=== PATIENT | female | born 1960 | race Caucasian/White ===

== ENCOUNTER 2023-10-26 13:49 | Observation (INO) | payer OTHER ==
--- OUTSIDE RECORDS SUMMARY | 2023-10-26 13:52 | XMS REPORT | Continuity of Care Document ---
Author Name Unknown Address [address] [facility] [address] [id number] [facility] Address [address] [facility] [address] [place] [address] Care Team Providers Care Behavioral Health Associate Name Role Phone Ernesto Salazar Attending Clinician Unavailable Bhavin Rodriguez Attending Clinician Unavailable SOFÍA HAMEED Attending Clinician Unavailable Lab, Adc Fam Pob I Attending Clinician UnavailPaula Parker Attending Clinician PAULA SPAULDING Attending Clinician Unavailable Dorothy Jones PA-C Attending Clinician DOROTHY JONES Attending Clinician Unavailable Payers Payer Name Policy Type Policy Number Effective Date Expirati on Date Source [employer] CHOICE POS II [id number] 2018 00:00:00 Allergies, Adverse Reactions, Alerts Allergy Name Allergy Type Status Severity Reaction(s) Onset Date Inactive Date Treating Clinician Comments Source NO KNOWN ALLERGIE S Drug Class Active [facility] Social History Social Habit Start Date Stop Date Quantity Comments Source Sex Assigned At [facility] Exposure to SARS-CoV-2 (event) Yes [facility] Smoking Status Start Date Stop Date Source Unknown if ever smoked [facility] Encounters Start Date/Time End Date/Time Encounter Type Admission Type Attending Clinicians Care Facility Care Department Encounter ID Source 2023-09-15 13:57:00 Outpatient Ernesto Salazar [facility] [id number] [facility] 2023-07-17 15:01:00 Outpatient Bhavin Rodriguez [facility] [id number] [facility] 2021-01-22 15:50:00 2021-01-22 15:50:00 Outpatient SOFÍA HERRMANN [facility] [id number] [facility] 2021-01-01 15:50:00 2021-01-01 15:50:00 Outpatient Elena HAMEED SOFÍA [facility] [id number] [facility] 2020-11-13 11:01:06 2020-11-13 11:21:06 Laboratory Only Lab, [facility] Sara Santiagoammy [facility] ..[id number] [facility] 2020-11-13 11:00:00 2020-11-13 11:00:00 Outpatient Elena PAULA SPAULDING [facility] [id number] [facility] 2020-11-09 16:26:52 2020-11-09 16:46:52 Laboratory Only Lab, [facility] Sara Jones [facility] [id number] [facility] 2020-11-09 16:20:00 2020-11-09 16:20:00 Outpatient Elena [facility] [id number] [facility]
--- NOTE | 2023-10-26 15:00 | EDPHYS ---
Physician Documentation [facility] Name: Kimberly Mosquera Age: 62 yrs Sex: Female : 1960 Arrival Date: 10/26/2023 Time: 13:49 Bed 18 Private MD: ED Physician Javi Youssef HPI: 10/26 14:34 This 62 yrs old Female presents to ER via Wheelchair with complaints of hemal Abdominal Pain. 14:34 The patient presents with abdominal pain in the epigastric area, in the upper abdomen. hemal Historical: - Allergies: 14:11 No Known Allergies; ko1 - Immunization history:: Adult Immunizations unknown. - Social history:: Smoking status: Patient denies any tobacco usage or history of. ROS: 14:51 Constitutional: Negative for fever, chills, and weight loss, Eyes: Negative for injury, hemal pain, redness, and discharge, ENT: Negative for injury, pain, and discharge, Neck: Negative for injury, pain, and swelling, Cardiovascular: Negative for chest pain, palpitations, and edema, Respiratory: Negative for shortness of breath, cough, wheezing, and pleuritic chest pain, Back: Negative for injury and pain, : Negative for injury, bleeding, discharge, and swelling, MS/Extremity: Negative for injury and deformity, Skin: Negative for injury, rash, and discoloration, Neuro: Negative for headache, weakness, numbness, tingling, and seizure, Psych: Negative for depression, anxiety, suicide ideation, homicidal ideation, and hallucinations, Allergy/Immunology: Negative for hives, rash, and allergies, Endocrine: Negative for neck swelling, polydipsia, polyuria, polyphagia, and marked weight changes, Hematologic/Lymphatic: Negative for swollen nodes, abnormal bleeding, and unusual bruising, 14:51 Abdomen/GI: Positive for abdominal pain, nausea and vomiting, abdominal cramps, of the epigastric area, right upper quadrant and left upper quadrant, Exam: 14:51 Constitutional: This is a well developed, well nourished patient who is awake, alert, hemal and in no acute distress. Head/Face: Normocephalic, atraumatic. Eyes: Pupils equal round and reactive to light, extra-ocular motions intact. Lids and lashes normal. Conjunctiva and sclera are non-icteric and not injected. Cornea within normal limits. Periorbital areas with no swelling, redness, or edema. ENT: Nares patent. No nasal discharge, no septal abnormalities noted. Tympanic membranes are normal and external auditory canals are clear. Oropharynx with no redness, swelling, or masses, exudates, or evidence of obstruction, uvula midline. Mucous membranes moist. Neck: Trachea midline, no thyromegaly or masses palpated, and no cervical lymphadenopathy. Supple, full range of motion without nuchal rigidity, or vertebral point tenderness. No Meningismus. Chest/axilla: Normal chest wall appearance and motion. Nontender with no deformity. No lesions are appreciated. Cardiovascular: Regular rate and rhythm with a normal S1 and S2. No gallops, murmurs, or rubs. Normal PMI, no JVD. No pulse deficits. Respiratory: Lungs have equal breath sounds bilaterally, clear to auscultation and percussion. No rales, rhonchi or wheezes noted. No increased work of breathing, no retractions or nasal flaring. Back: No spinal tenderness. No costovertebral tenderness. Full range of motion. Female : Normal external genitalia. Skin: Warm, dry with normal turgor. Normal color with no rashes, no lesions, and no evidence of cellulitis. MS/ Extremity: Pulses equal, no cyanosis. Neurovascular intact. Full, normal range of motion. Neuro: Awake and alert, GCS 15, oriented to person, place, time, and situation. Cranial nerves II-XII grossly intact. Motor strength 5/5 in all extremities. Sensory grossly intact. Cerebellar exam normal. Normal gait. Psych: Awake, alert, with orientation to person, place and time. Behavior, mood, and affect are within normal limits. 14:51 ECG was reviewed by the Attending Physician. 14:51 Abdomen/GI: Inspection: abdomen appears normal, Bowel sounds: normal, Palpation: mild abdominal tenderness, moderate abdominal tenderness, in the epigastric area and left upper quadrant, Liver: no appreciated palpable abnormalities, Hernia: not appreciated, Vital Signs: 14:06 BP 174 / 94; Pulse 69; Resp 19; Temp 98; Pulse Ox 100% ; ko1 15:30 BP 193 / 90; Pulse 72; Resp 16; Pulse Ox 99% on R/A; db 16:15 BP 128 / 72; Pulse 70; Resp 18; Pulse Ox 95% on R/A; db 17:22 BP 140 / 64; Pulse 66; Resp 16; Pulse Ox 96% on R/A; db MDM: 14:15 Patient medically screened. [place] 14:53 Differential diagnosis: Nonspecific abd pain, cholecystitis, pancreatitis, hemal appendicitis, diverticulitis, viral gastroenteritis, gastroenteritis, Cholelithiasis, diverticulitis, gastritis, gastroesophageal reflux disease, non-specific abd pain, pancreatitis, Peptic Ulcer Disease, Perf. Duodenal Ulcer, Perf. Gastric Ulcer, Peritonitis, Pyelonephritis, Ureterolithiasis, urinary tract infection. Data reviewed: vital signs, nurses notes, lab test result(s), EKG, radiologic studies, CT scan, plain films, ultrasound. Consideration of Admission/Observation Patient was admitted/placed on observation. Escalation of care including admission/observation considered. I considered the following discharge prescriptions or medication management in the emergency department Medications were administered in the Emergency Department. See MAR. Independent interpretation of the following test(s) in the Emergency Department EKG: See my EKG interpretation above. Test considered but Not performed: MRI: NO MRCP. Care significantly affected by the following chronic conditions: ETOH DAILY/HEAVY. 10/26 13:59 Order name: CBC with Diff; Complete Time: 15:26 [place] 10/26 13:59 Order name: CMP; Complete Time: 15:39 [place] 10/26 13:59 Order name: Lipase; Complete Time: 15:39 [place] 10/26 13:59 Order name: Urinalysis w/ reflexes [place] 10/26 14:16 Order name: Troponin High Sensitivity; Complete Time: 16:36 [place] 10/26 14:16 Order name: EKG; Complete Time: 14:17 [place] 10/26 13:59 Order name: IV Saline Lock; Complete Time: 15:00 [place] 10/26 13:59 Order name: Labs collected and sent; Complete Time: 15:00 [place] 10/26 14:16 Order name: EKG - Nurse/Tech; Complete Time: 15:17 [place] EC:51 Rate is 70 beats/min. Rhythm is regular. QRS [place] is Normal. VA interval is normal. QRS hemal interval is normal. QT interval is normal. No Q waves. T waves are Normal. No ST changes noted. Clinical impression: Normal ECG and No evidence of ischemia. Interpreted by me. Reviewed by me. Administered Medications: 14:16 CANCELLED (Duplicate Order): ondansetron 4 mg IVP once; over 2 minutes hemal 15:49 CANCELLED (Duplicate Order): morphineor iv 4 mg IVP once over 4 mins hemal 16:00 Drug: HYDROmorphone IVP 1 mg IVP once Route: IVP; Site: right antecubital; db 17:20 Follow up: Response: No adverse reaction db 16:00 Drug: Pantoprazole IVP 40 mg IVP once Route: IVP; Site: right antecubital; db 17:20 Follow up: Response: No adverse reaction db 16:00 Drug: NS 0.9% IV 1000 ml IV at 1 bolus Per protocol; 1000 mL bolus Route: IV; Rate: 1 db bolus; Site: right antecubital; 17:20 Follow up: IV Status: Infusion continued upon admission db 16:00 Drug: Ondansetron IVP 8 mg IVP once; over 2 minutes Route: IVP; Site: right antecubital;db 17:09 Follow up: Response: No adverse reaction db 16:08 Not Given (Duplicate Order): ondansetron 4 mg IVP once; over 2 minutes db 16:40 Drug: NS 0.9% IV 1000 ml IV at 1 bolus Per protocol; 1000 mL bolus Route: IV; Rate: 1 db bolus; Site: right antecubital; 17:21 Follow up: IV Status: Infusion continued upon admission db 17:04 Drug: NS 0.9% with KCl IV 20 mEq/L 1000 ml IV at 125 ml/hr continuous Route: IV; Rate: db 125 ml/hr; Site: right antecubital; 17:20 Follow up: Response: No adverse reaction; IV Status: Infusion continued upon admission db Disposition Summary: 10/26/23 14:59 Hospitalization Ordered Notes: Hospitalization Status: Observation hemal Provider: Glenn Rodrigues cha Location: Telemetry/MedSurg (observation) hemal Condition: Stable hemal Problem: new hemal Symptoms: have improved hemal Bed/Room Type: Standard hemal Room Assignment: 223(10/26/23 16:15) bd Diagnosis - Alcohol abuse, uncomplicated hemal - Epigastric abdominal tenderness - FAILED OUTPATIENT TREATMENT hemal - Vomiting - INTRACTABLE hemal - Hypokalemia hemal Forms: - Medication Reconciliation Form hemal - SBAR form hemal - Leadership Thank You Letter hemal Signatures: Dispatcher [employer] EDMS Estefanía Moss Corey, MD MD cha Attema, Lee, CHAIN MENDER-C CHAIN MENDER-Cla1 Celeste Dunn, RN RN ko1 Kelsey Lewis, RN RN db Corrections: (The following items were deleted from the chart) 14:14 14:00 Abdomen Pelvis W Con+CT.RAD.BRZ ordered. EDMS EDMS 14:16 13:59 Ondansetron IVP 4 mg IVP once; over 2 minutes ordered. hemal hemal 15:49 13:59 morphine IVP or IV 4 mg IVP once over 4 mins ordered. hemal hemal 16:15 14:59 hemal bd
--- NOTE | 2023-10-26 15:00 | ER ---
Nurse's Notes [facility] Name: Kimberly Mosquera Age: 62 yrs Sex: Female : 1960 Arrival Date: 10/26/2023 Time: 13:49 Bed 18 Private MD: Diagnosis: Alcohol abuse, uncomplicated;Epigastric abdominal tenderness-FAILED OUTPATIENT TREATMENT;Vomiting-INTRACTABLE;Hypokalemia Presentation: 10/26 14:06 Chief complaint: Patient states: abdominal pain and vomiting, was just here a couple of ko1 hours ago. Coronavirus screen: At this time, the client does not indicate any symptoms associated with coronavirus-19. Ebola Screen: No symptoms or risks identified at this time. Initial Sepsis Screen: Does the patient meet any 2 criteria? No. Patient's initial sepsis screen is negative. Does the patient have a suspected source of infection? No. Patient's initial sepsis screen is negative. Risk Assessment: Do you want to hurt yourself or someone else? Patient reports no desire to harm self or others. Onset of symptoms was October 26, 2023. 14:06 Method Of Arrival: Wheelchair ko1 14:06 Acuity: ARTUR 2 ko1 Triage Assessment: 14:11 General: Appears distressed, ill, Behavior is cooperative, appropriate for age. Pain: ko1 Complains of pain in abdomen. GI: Pt is actively vomiting bile, clear fluid. Historical: - Allergies: 14:11 No Known Allergies; ko1 - Immunization history:: Adult Immunizations unknown. - Social history:: Smoking status: Patient denies any tobacco usage or history of. Screenin:35 [facility] ED Fall Risk Assessment (Adult) History of falling in the last 3 months, db including since admission No falls in past 3 months (0 pts) Confusion or Disorientation No (0 pts) Intoxicated or Sedated No (0 pts) Impaired Gait No (0 pts) Mobility Assist Device Used No (0 pt) Altered Elimination No (0 pt) Score/Fall Risk Level 0 - 2 = Low Risk Oriented to surroundings, Maintained a safe environment. Abuse screen: Denies threats or abuse. Denies injuries from another. Nutritional screening: No deficits noted. Tuberculosis screening: No symptoms or risk factors identified. Assessment: 15:45 Reassessment: Patient appears in no apparent distress at this time. Patient and/or db family updated on plan of care and expected duration. Pain level reassessed. Patient is alert, oriented x 3, equal unlabored respirations, skin warm/dry/pink. General: Appears in no apparent distress. comfortable, Behavior is calm, cooperative. 16:33 Reassessment: Patient appears in no apparent distress at this time. Patient and/or db family updated on plan of care and expected duration. Pain level reassessed. Patient is alert, oriented x 3, equal unlabored respirations, skin warm/dry/pink. Patient states feeling better. Patient states symptoms have improved. General: Appears in no apparent distress. comfortable, Behavior is calm, cooperative. Neuro: Level of Consciousness is awake, alert, obeys commands, Oriented to person, place, time, situation. Respiratory: Airway is patent Respiratory effort is even, unlabored, Respiratory pattern is regular, symmetrical. 16:37 Reassessment: REPORT GIVEN TO ROXANNE. graves 17:22 Reassessment: Patient appears in no apparent distress at this time. Patient and/or db family updated on plan of care and expected duration. Pain level reassessed. Patient is alert, oriented x 3, equal unlabored respirations, skin warm/dry/pink. Vital Signs: 14:06 BP 174 / 94; Pulse 69; Resp 19; Temp 98; Pulse Ox 100% ; ko1 15:30 BP 193 / 90; Pulse 72; Resp 16; Pulse Ox 99% on R/A; db 16:15 BP 128 / 72; Pulse 70; Resp 18; Pulse Ox 95% on R/A; db 17:22 BP 140 / 64; Pulse 66; Resp 16; Pulse Ox 96% on R/A; db ED Course: 13:53 Patient arrived in ED. im 13:56 Javi Youssef MD is Attending Physician. hemal 14:11 Triage completed. ko1 14:11 Arm band placed on right wrist. Patient placed in an exam room, on a stretcher, on ko1 technical agronomist, on pulse oximetry, Patient notified of wait time. 14:54 Glenn Rodrigues is Hospitalizing Provider. hemal 15:00 CBC with Diff Sent. cm10 15:00 CMP Sent. cm10 15:00 Lipase Sent. cm10 15:00 Troponin High Sensitivity Sent. cm10 15:00 Initial lab(s) drawn, by il, sent to lab. Inserted saline lock: 20 gauge in right cm10 antecubital area, using aseptic technique. Blood collected. 15:16 EKG done, by ED staff. aw1 15:27 Kelsey Lewis, RN is Primary Nurse. db 16:39 Patient has correct armband on for positive identification. Bed in low position. Call db light in reach. Side rails up X 1. Provided Education on: ADMISSION. Client placed on continuous cardiac and pulse oximetry monitoring. NIBP monitoring applied. Warm blanket given. 16:39 No provider procedures requiring assistance completed. Patient admitted, IV remains in db place. Administered Medications: 14:16 CANCELLED (Duplicate Order): ondansetron 4 mg IVP once; over 2 minutes hemal 15:49 CANCELLED (Duplicate Order): morphineor iv 4 mg IVP once over 4 mins hemal 16:00 Drug: HYDROmorphone IVP 1 mg IVP once Route: IVP; Site: right antecubital; db 17:20 Follow up: Response: No adverse reaction db 16:00 Drug: Pantoprazole IVP 40 mg IVP once Route: IVP; Site: right antecubital; db 17:20 Follow up: Response: No adverse reaction db 16:00 Drug: NS 0.9% IV 1000 ml IV at 1 bolus Per protocol; 1000 mL bolus Route: IV; Rate: 1 db bolus; Site: right antecubital; 17:20 Follow up: IV Status: Infusion continued upon admission db 16:00 Drug: Ondansetron IVP 8 mg IVP once; over 2 minutes Route: IVP; Site: right antecubital;db 17:09 Follow up: Response: No adverse reaction db 16:08 Not Given (Duplicate Order): ondansetron 4 mg IVP once; over 2 minutes db 16:40 Drug: NS 0.9% IV 1000 ml IV at 1 bolus Per protocol; 1000 mL bolus Route: IV; Rate: 1 db bolus; Site: right antecubital; 17:21 Follow up: IV Status: Infusion continued upon admission db 17:04 Drug: NS 0.9% with KCl IV 20 mEq/L 1000 ml IV at 125 ml/hr continuous Route: IV; Rate: db 125 ml/hr; Site: right antecubital; 17:20 Follow up: Response: No adverse reaction; IV Status: Infusion continued upon admission db Medication: 16:39 VIS not applicable for this client. db Outcome: 14:59 Decision to Hospitalize by Provider. hemal 17:21 Admitted to Tele accompanied by tech, on monitor, db 17:21 Instructed on the need for admit, 17:24 Patient left the ED. db Signatures: Javi Youssef MD MD cha Oliver, Kathy RN RN ko1 Kelsey Lewis RN RN db Betina Jean Baptiste Clarissa RN RN cm10 Naomi Gambino aw1 Corrections: (The following items were deleted from the chart) 14:11 14:06 Acuity: ARTUR 3 ko1 ko1
[2023-10-26 15:07] LABS: Absolute Lymphocytes (CBC) 0.9 K/uL (0.7-4.9); Hematocrit 38.4 % (36.0-45.0); Lymphocytes % 8.8 % (15.3-44.8); MCV 94.5 fL (80-100); MPV 7.1 fL (7.6-11.3); Platelets 381 thou/uL (152-406); RBC Red Blood Cell Count 4.07 M/uL (3.86-4.86)
[2023-10-26 15:24] LABS: Albumin 3.7 g/dL (3.4-5.0); Bilirubin Total 0.3 mg/dL (0.2-1.0); Potassium 3.3 mEq/L (3.5-5.1); Protein, Total 7.5 g/dL (6.4-8.2)
[2023-10-26] MEDS ORDERED: ONDANSETRON 4 MG/2 ML VIAL ONE ×2 (15:47→15:52)
[2023-10-26] MEDS ORDERED: PANTOPRAZOLE 40 MG INJ ONE (15:47)
[2023-10-26] MEDS ORDERED: MORPHINE 4 MG/ML SYR ONE (15:47)
[2023-10-26] MEDS ORDERED: NA CHLORIDE 0.9% 2,000 ML ONE (15:48)
[2023-10-26] MEDS ORDERED: HYDROMORPHONE HCL 1 MG/ML INJ ONE (15:52)
--- NOTE | 2023-10-26 16:14 | P.HP ---
Certification for Inpatient Patient admitted to: Observation With expected LOS: <2 Midnights Patient will require the following post-hospital care: None Practitioner: I am a practitioner with admitting privileges, knowledge of patient current condition, hospital course, and medical plan of care. Services: Services provided to patient in accordance with Admission requirements found in Title 42 Section 412.3 of the Code of Federal Regulations Patient History Date of Service: 10/26/23 Reason for admission: Intractable vomiting/abdominal pain History of Present Illness: 62-year-old female with history of hypertension, hyperlipidemia, depression presents to the emergency department chief complaint of abdominal pain, nausea/vomiting. She reports that last night she ate crackers with butter and bread on top for the first time in a very long time as she does not usually consume butter, also admits to drinking vodka daily 2-3 beverages per night. W hen she went to bed she is feeling fine, when she woke up this morning at 5 AM she was having significant abdominal pain and vomiting and came to the ER for evaluation. Patient was seen first in the emergency room in the morning on 10/26, she had labs which were remarkable only for mild leukocytosis abdominal ultrasound was negative for acute findings chest x-ray unremarkable CT abdomen pelvis was also performed which was negative for acute findings that explain her pain. She was subsequently discharged home. After arriving home patient reports she had return of her pain and vomiting requiring her to come back to the hospital, upon arrival to the hospital patient was in significant pain, active vomiting. Labs were repeated sodium went from 1 34-132 potassium from 4.1 down to 3.3 and ch loride from 197 lipase remained within normal limits platelets count decreased from 12.6-9.0 UA from first visit not concerning for urinary tract infection. ED provider wishes to admit under observation for tractable vomiting/abdominal pain. - Past Medical/Surgical History -: Hyperlipidemia -: Hypertension -: Depression -: D&C Psychosocial/ Personal History: Self-employed - Family History Mother -: Heart disease, Cancer Father -: Cancer - Social History Smoking Status: Never smoker Alcohol use: Yes CD- Drugs: No Caffeine use: Yes Place of Residence: Home Review of Systems 10-point ROS is otherwise unremarkable Gastrointestinal: Nausea, Vomiting, Abdominal Pain Physical Examination - Physical Exam General: Alert, In no apparent distress, Oriented x3 HEENT: Atraumatic, PERRLA, Mucous membr. moist/pink Neck: Supple, 2+ carotid pulse no bruit, No LAD Respiratory: Clear to auscultation bilaterally, Normal air movement Cardiovascular: Regular rate/rhythm, Normal S1 S2 Gastrointestinal: Normal bowel sounds, Tenderness (Mild generalized abdominal tenderness) Musculoskeletal: No tenderness Integumentary: No rashes Neurological: Normal speech, Normal strength at 5/5 x4 extr, Normal tone, Normal affect - Studies Laboratory Data (last 24 hrs) 10/26/23 10/26/23 14:55 14:55 WBC 9.90 Hgb 13.2 Hct 38.4 Plt Count 381 Sodium 132 L Potassium 3.3 L D BUN 8 Creatinine 0.71 Glucose 162 H Total Bilirubin 0.3 AST 15 ALT 25 Alkaline Phosphatase 53 Lipase 63 Assessment and Plan - Plan Assessment: Intractable abdominal pain/vomiting No CT or ultrasound findings to explain symptoms Lipase within normal limits at this time N.p.o. aside from ice chips, small sips of water Repeat troponin, lipase levels Will trial PPI Does admit to daily drinking, possible gastritis Also consumed a fair bit of butter yesterday which she does not typically eat KUB in the morning, advance diet as tolerated Last colonoscopy 8 years ago, never had EGD. Denies melena, hematochezia Hypertension Hyperlipidemia Depression Hold oral medications for now, restart appropriate DVT PPX: Lovenox Code status: Full Discharge Plan: Home Plan to discharge in: 24 Hours - Advance Directives Does patient have a Living Will: No Does patient have a Durable POA for Healthcare: No - Code Status/Comfort Care Code Status Assessed: Yes (Full code) Critical Care: No Time Spent Managing Pts Care (In Minutes): 55
[2023-10-26] MEDS ORDERED: NS KCL 20MEQ 1,000 ML IV ONE (16:58)
[2023-10-26] MEDS ORDERED: HYDRALAZINE HCL 20 MG/ML VIAL IV PRN (17:39)
[2023-10-26] MEDS ORDERED: SODIUM CHLORIDE 0.9% 10ML INJ IV PRN (17:39)
[2023-10-26] MEDS ORDERED: PROMETHAZINE 25 MG TABLET PO PRN (17:39)
[2023-10-26] MEDS ORDERED: ONDANSETRON 4 MG/2 ML VIAL IV PRN (17:39)
[2023-10-26 17:53] VITALS: BMI 25.7
[2023-10-26 18:23] VITALS: O2SAT 97
[2023-10-26] MEDS: NA CHLORIDE 0.9% 1,000 ML IV SCH (19:07)
[2023-10-26] MEDS: MORPHINE 2 MG/ML SYR IV PRN (21:08)
[2023-10-26] MEDS: PANTOPRAZOLE 40 MG INJ IVP SCH (21:09)
[2023-10-27 02:33] LABS: Absolute Lymphocytes (CBC) 2.6 K/uL (0.7-4.9); Hematocrit 30.7 % (36.0-45.0); Lymphocytes % 32.7 % (15.3-44.8); MCV 95.1 fL (80-100); MPV 7.3 fL (7.6-11.3); Platelets 307 thou/uL (152-406); RBC Red Blood Cell Count 3.23 M/uL (3.86-4.86)
[2023-10-27 03:13] LABS: Albumin 2.8 g/dL (3.4-5.0); Bilirubin Total 0.3 mg/dL (0.2-1.0); Magnesium 1.9 mg/dL (1.6-2.4); Potassium 3.4 mEq/L (3.5-5.1); Protein, Total 5.6 g/dL (6.4-8.2); Thyroid Stimulating Hormone 0.793 uIU/mL (0.358-3.740); Troponin High Sensitivity 5.9 pg/mL (<58.9)
[2023-10-27] MEDS: NA CHLORIDE 0.9% 1,000 ML IV SCH ×3 (03:39→13:39)
[2023-10-27] MEDS: KCL 20 MEQ/100 mL IVPB 20 MEQ/100 ML BAG IV SCH ×2 (05:42→09:35)
--- NOTE | 2023-10-27 07:24 | RAD REPORT ---
EXAM DESCRIPTION: RAD - Abdomen 1 View (KUB) - 10/27/2023 6:36 am CLINICAL HISTORY: abd pain, vomiting COMPARISON: Abdomen Pelvis W Contrast dated 10/26/2023 FINDINGS: Nonobstructive bowel gas pattern. No acute osseous abnormality.Visualized lungs are unrema rkable.No abnormal calcifications. Mild formed stool burden. IMPRESSION: Nonobstructive bowel gas pattern.
[2023-10-27] MEDS ORDERED: ATORVASTATIN 20 MG TAB PO SCH (09:00)
[2023-10-27] MEDS ORDERED: ESCITALOPRAM 20 MG TAB PO SCH (09:00)
[2023-10-27] MEDS ORDERED: FLUTICASONE 50MCG NASAL SPRAY NAS SCH (09:00)
[2023-10-27] MEDS ORDERED: ENOXAPARIN 40 MG/0.4 ML SQ SCH (09:00)
[2023-10-27] MEDS ORDERED: lisinopriL 20 MG TAB PO SCH (09:00)
[2023-10-27] MEDS: PANTOPRAZOLE 40 MG INJ IVP SCH (09:35)
[2023-10-27] MEDS: MORPHINE 2 MG/ML SYR IV PRN (10:42)
--- NOTE | 2023-10-27 11:49 | EKG ---
Test Date: 2023-10-26 Test Time: 15:13:55 Clearing Inspector: CHETNA MEASUREMENT RESULTS: Intervals: Rate: 69 RI: 142 QRSD: 108 QT: 426 QTc: 456 [place]: P: 66 RI: 142 QRS: 70 T: 40 INTERPRETIVE STATEMENTS: Normal sinus rhythm Normal ECG Compared to ECG 10/26/2023 07:42:33 No significant changes Electronically Signed On 10-27-23 11:46:25 PIECE HAND by Sandeep Leos
--- NOTE | 2023-10-27 15:35 | P.DS ---
Admission Date: 10/26/23 Discharge Date: 10/27/23 Reason for Admission: Intractable vomiting/abdominal pain Brief History of Present Illness: 62-year-old female with history of hypertension, hyperlipidemia, depression presents to the emergency department chief complaint of abdominal pain, nausea/vomiting. She reports that last night she ate crackers with butter and bread on top for the first time in a very long time as she does not usually consume butter, also admits to drinking vodka daily 2-3 beverages per night. When she went to bed she is feeling fine, when she woke up this morning at 5 AM she was having significant abdominal pain and vomiting and came to the ER for evaluation. Patient was seen first in the emergency room in the morning on 10/26, she had labs which were remarkable only for mild leukocytosis abdominal ultrasound was negative for acute findings chest x-ray unremarkable CT abdomen pelvis was also performed which was negative for acute findings that explain her pain. She was subsequently discharged home. After arriving home patient reports she had return of her pain and vomiting requiring her to come back to the hospital, upon arrival to the hospital patient was in significant pain, active vomiting. Labs were repeated sodium went from 1 34-132 potassium from 4.1 down to 3.3 and chloride from 197 lipase remained within normal limits platelets count decreased from 12.6-9.0 UA from first visit not concerning for urinary tract infection. ED provider wishes to admit under observation for tractable vomiting/abdominal pain. Hospital Course: Problem list Intractable abdominal pain/vomiting Hypertension Hyperlipidemia Depression Patient was admitted to the hospital for intractable vomiting, abdominal pain. In the emergency department she had a CT of her abdomen pelvis which was negative for acute findings, ultrasound of gallbladder also negative, lab work was unremarkable. Overnight her symptoms improved, in the morning she tolerated a clear liquid diet and subsequently for lunch she tolerated a regular diet. KUB obtained this morning with nonobstructive bowel gas pattern, no free air. At this time patient is stable for discharge to follow-up with her primary care doctor. Please take medications as prescribed by ED physician yesterday Follow-up with primary care doctor in 1 to 2 weeks Discontinue daily aspirin, abstain from alcohol Vital Signs/Physical Exam: Temp Pulse Resp BP Pulse Ox 98.2 F 61 16 150/72 H 96 10/27/23 12:00 10/27/23 12:00 10/27/23 12:00 10/27/23 12:00 10/27/23 12:00 General: Alert, In no apparent distress, Oriented x3 HEENT: Atraumatic, PERRLA Neck: Supple, JVD not distended Respiratory: Normal air movement Cardiovascular: Regular rate/rhythm, Normal S1 S2 Gastrointestinal: Normal bowel sounds, No tenderness Musculoskeletal: No tenderness Integumentary: No rashes Neurological: Normal speech, Normal tone, Normal affect Laboratory Data at Discharge: WBC 8.00 thou/uL (4.3-10.9) 10/27/23 01:55 Hgb 10.6 g/dL (12.0-15.0) L D 10/27/23 01:55 Hct 30.7 % (36.0-45.0) L 10/27/23 01:55 Plt Count 307 thou/uL (152-406) 10/27/23 01:55 Sodium 134 mEq/L (136-145) L 10/27/23 01:55 Potassium 3.4 mEq/L (3.5-5.1) L 10/27/23 01:55 BUN 6 mg/dL (7-18) L 10/27/23 01:55 Creatinine 0.44 mg/dL (0.55-1.02) L 10/27/23 01:55 Glucose 91 mg/dL (74-106) 10/27/23 01:55 Magnesium 1.9 mg/dL (1.6-2.4) 10/27/23 01:55 Total Bilirubin 0.3 mg/dL (0.2-1.0) 10/27/23 01:55 AST 14 U/L (15-37) L 10/27/23 01:55 ALT 19 U/L (13-56) 10/27/23 01:55 Alkaline Phosphatase 39 U/L (45-117) L D 10/27/23 01:55 Lipase 24 U/L (13-75) 10/27/23 01:55 Home Medications: Bisoprolol/Hydrochlorothiazide [Bisoprolol-Hctz 5-6.25 mg Tab] 5 - 6.25 mg PO DAILY 10/26/23 Escitalopram [Lexapro] 10 mg PO DAILY 10/26/23 Fluticasone [Flonase 50MCG Nasal [place]*] 1 sprays DAILY 10/26/23 Simvastatin 40 mg PO DAILY 10/26/23 lisinopriL [Lisinopril] 20 mg PO BID 10/26/23 Physician Discharge Instructions: Patient was admitted to the hospital for intractable vomiting, abdominal pain. In the emergency department she had a CT of her abdomen pelvis which was negative for acute findings, ultrasound of gallbladder also negative, lab work was unremarkable. Overnight her symptoms improved, in the morning she tolerated a clear liquid diet and subsequently for lunch she tolerated a regular diet. KUB obtained this morning with nonobstructive bowel gas pattern, no free air. At this time patient is stable for discharge to follow-up with her primary care doctor. Please take medications as prescribed by ED physician yesterday Follow-up with primary care doctor in 1 to 2 weeks Discontinue daily aspirin, abstain from alcohol Diet: [place] Activity: Ad barber Followup: NONE,NONE [Primary Care Provider] - Time spent managing pt's care (in minutes): 30
[2023-10-27 16:45] VITALS: BP 129/66; TEMP 98.4
== END 2023-10-27 16:45 | disposition home or self-care (01) ==
LOC: ER 13:49 → 2ND 16:59
PROVIDERS: ADMIT Internal Medicine; ATTEND Hospitalist
DX: R10.9 Unspecified abdominal pain (principal); R11.2 Nausea with vomiting, unspecified; D72.829 Elevated white blood cell count, unspecified; I10 Essential (primary) hypertension; E78.5 Hyperlipidemia, unspecified; F32.A Depression, unspecified; F10.90 Alcohol use, unspecified, uncomplicated
CPT/HCPCS: 96361; 93005; 85025 ×2; 36415; 83735; 84443; 84484 ×3; 84439; 83690 ×2; 80053 ×2; 74018; 96375; 96374; 99285; J3480 ×3; J0360; C9113 ×3; J1650; J2270 ×2; J1170; J2405 ×2; J7030 ×4; G0378 ×3

== ENCOUNTER 2025-08-14 18:43 | Emergency (ER) | payer OTHER ==
--- OUTSIDE RECORDS SUMMARY | 2025-08-14 18:48 | XMS REPORT | Continuity of Care Document ---
Author Name Unknown Address [address] [facility] [phone] Organization [facility] Address [address] [facility] 1 [phone] Care Team Providers Care Ophthalmic Assistant Name Role Phone Ernesto Salazar Attending Clinician Unavailable Bhavin Rodriguez Attending Clinician Unavailable SOFÍA HAMEED Attending Clinician Unavailable Lab, Adc Fam Pob I Attending Clinician UnavailKacey Parker Attending Clinician KACEY SPAULDING Attending Clinician Unavailable Dorothy Jones PA-C Attending Clinician [phone] DOROTHY JONES Attending Clinician Unavailable Payers Payer Name Policy Type Policy Number Effective Date Expirati on Date Source AETNA 53 [id number] 2002 00:00:00 [facility] AETNA 53 [id number] [facility] AETNA CHOICE POS II [id number] 2018 00:00:00 Problems Condition Name Condition Details Condition Category Status Onset Date Resolution Date Last Treatment Date Treating Clinician Comments Source Uterine leiomyoma Uterine Leiomyoma Problem Active 11-18 00:00: 00 [facility] Hemangioma of liver Hemangioma of Liver Problem Active 11-16 00:00: 00 [facility] Cyst of left ovary Cyst of Left Ovary Problem Active 11-16 00:00: 00 [facility] Urgent desire to urinate Urgent Desire to Urinate Problem Active 2023-11 00:00: 00 [facility] Mass of uterus Mass of Uterus Problem Active 2023-11 00:00: 00 [facility] Atrophic vaginitis Atrophic Vaginitis Problem Active 2023-11 00:00: 00 [facility] Asymptomat ic microscopi c hematuria Asymptomat ic Microscopi c Hematuria Problem Active 2023-11 00:00: 00 [facility] Hyperlipid emia Hyperlipid emia Problem Active 2023-11 00:00: 00 [facility] Anxiety Anxiety Problem Active 2023-11 00:00: 00 [facility] Essential hypertensi on Essential Hypertensi on Problem Active 2023-11 00:00: 00 [facility] Irritable bowel syndrome with diarrhea Irritable Bowel Syndrome with Diarrhea Problem Active 2023-11 00:00: 00 [facility] Microscopi c hematuria Microscopi c Hematuria Problem Active 2023-11 00:00: 00 [facility] Pain in pelvis Pain in Pelvis Problem Active 2023-11 00:00: 00 [facility] [id number] Encounter for screening mammogram for malignant neoplasm of breast Problem [facility] Mixed hyperlipid emia Hyperlipem ia, mixed Problem [facility] [id number] Other abnormal and inconclusi ve findings on diagnostic imaging of breast Problem [facility] [id number] Generalize d anxiety disorder Problem [facility] [id number] Pain in right hip Problem [facility] [id number] Pain in left hip Problem [facility] [id number] Gastroesop hageal reflux disease without esophagiti s Problem [facility] [id number] Leukocytos is, unspecifie d Problem [facility] [id number] Routine gynecologi radha examinatio n Problem [facility] Allergies, Adverse Reactions, Alerts Allergy Name Allergy Type Status Severity Reaction(s) Onset Date Inactive Date Treating Clinician Comments Source codeine codeine Active Unknown [facility] NO KNOWN ALLERGIE S Drug Class Active [facility] Social History Social Habit Start Date Stop Date Quantity Comments Source Exposure to SARS-CoV-2 (event) Yes [facility] History of Tobacco Use [facility] Sex Assigned At [facility] Smoking Status Start Date Stop Date Source Never Smoker [facility] Unknown if ever smoked [facility] Former Smoker 2025-06-19 00:00:00 2025-06-19 00:00:00 [facility] Medications Ordered Medication Name Filled Medication Name Start Date Stop Date Current Medication? Ordering Clinician Indication Dosage Frequency Signature (SIG) Comments Components Source ketorolac 30 mg/mL (1 mL) injection solution Inject 1 mL every 6 hours by intramuscul ar route. ketorolac 30 mg/mL (1 mL) injection solution Inject 1 mL every 6 hours by intramuscul ar route. 11-18 08:55: 42 No 1mL Q6H ketorolac 30 mg/mL (1 mL) injection solution Inject 1 mL every 6 hours by intramuscu lar route. [facility] Multi Vitamin Multi Vitamin No Multi Vitamin Escitalopra m Oxalate 10 MG Escitalopra m Oxalate 10 MG No 1{table t} QD Escitalopr am Oxalate 10 MG Lisinopril 20 MG Lisinopril 20 MG No 1{table t} QD Lisinopril 20 MG Simvastatin 40 MG Simvastatin 40 MG No 1{table t_in_th e_eveni ng} QD Simvastati n 40 MG Omeprazole 20 MG Omeprazole 20 MG No QD Omeprazole 20 MG Fluticasone Propionate 50 MCG/ACT Fluticasone Propionate 50 MCG/ACT No 1{spray _in_[facility] h_nostr il} BID Fluticason e Propionate 50 MCG/ACT Bisoprolol- hydroCHLORO thiazide 5-6.25 MG Bisoprolol- hydroCHLORO thiazide 5-6.25 MG No 1{table t} QD Bisoprolol -hydroCHLO ROthiazide 5-6.25 MG bisoprolol 5 mg-hydrochl orothiazide 6.25 mg tablet Take 1 tablet every day by oral route. bisoprolol 5 mg-hydrochl orothiazide 6.25 mg tablet Take 1 tablet every day by oral route. No 1 Q1D bisoprolol 5 mg-hydroch lorothiazi de 6.25 mg tablet Take 1 tablet every day by oral route. [facility] cetirizine cetirizine No cetirizine [facility] escitalopra m 10 mg tablet Take 1 tablet every day by oral route. escitalopra m 10 mg tablet Take 1 tablet every day by oral route. No 1 Q1D escitalopr am 10 mg tablet Take 1 tablet every day by oral route. [facility] fluticasone prop 113 mcg/actuati on breath activated pwdr inhal,senso r Inhale 1 puff twice a day by inhalation route. fluticasone prop 113 mcg/actuati on breath activated pwdr inhal,senso r Inhale 1 puff twice a day by inhalation route. No 1puff(s ) BID fluticason e prop 113 mcg/actuat ion breath activated pwdr inhal,sens or Inhale 1 puff twice a day by inhalation route. [facility] lisinopril 20 mg tablet Take 1 tablet twice a day by oral route. lisinopril 20 mg tablet Take 1 tablet twice a day by oral route. No 1 BID lisinopril 20 mg tablet Take 1 tablet twice a day by oral route. [facility] multivitami n multivitami n No multivitam in [facility] simvastatin 40 mg tablet Take 1 tablet every day by oral route. simvastatin 40 mg tablet Take 1 tablet every day by oral route. No 1 Q1D simvastati n 40 mg tablet Take 1 tablet every day by oral route. [facility] acetaminoph en 300 mg-codeine 30 mg tablet 1 tablet prior to procedure and then every 8 hours after procedure as needed acetaminoph en 300 mg-codeine 30 mg tablet 1 tablet prior to procedure and then every 8 hours after procedure as needed No acetaminop hen 300 mg-codeine 30 mg tablet 1 tablet prior to procedure and then every 8 hours after procedure as needed [facility] Celebrex 200 mg capsule 1 capsule PO night before procedure Celebrex 200 mg capsule 1 capsule PO night before procedure No Celebrex 200 mg capsule 1 capsule PO night before procedure [facility] Valium 10 mg tablet 1 tablet PO night before procedure and 1 tablet PO 1 hour prior to procedure Valium 10 mg tablet 1 tablet PO night before procedure and 1 tablet PO 1 hour prior to procedure No Valium 10 mg tablet 1 tablet PO night before procedure and 1 tablet PO 1 hour prior to procedure [facility] estradiol 0.01% (0.1 mg/gram) vaginal cream Insert 0.5 g 3 times a week by vaginal route at bedtime. estradiol 0.01% (0.1 mg/gram) vaginal cream Insert 0.5 g 3 times a week by vaginal route at bedtime. No .5g Q56H estradiol 0.01% (0.1 mg/gram) vaginal cream Insert 0.5 g 3 times a week by vaginal route at bedtime. [facility] Immunizations Ordered Immunization Name Filled Immunization Name Date Status Comments Source Comirnaty COVID 19 Vaccine Comirnaty COVID 19 Vaccine Unknown Completed [facility] FLUZONE HIGH DOSE OVER 65 FLUZONE HIGH DOSE OVER 65 Unknown Completed [facility] Adult Tetanus Adult Tetanus Unknown Completed [facility] Vital Signs Vital Name Observation Time Observation Value Comments S ource height 2025-06-19 13:35:00 58 [in_i] Commo n [facility] weight 2025-06-19 13:35:00 140 [lb_av] Comm on [facility] bmi 2025-06-19 13:35:00 29.26 kg/m2 Comm on [facility] blood pressure systolic 2025-06-19 13:35:00 132 mm[Hg] [facility] blood pressure diastolic 2025-06-19 13:35:00 70 mm[Hg] [facility] height 2025-03-22 13:20:00 58 [in_i] Commo n [facility] weight 2025-03-22 13:20:00 140.6 [lb_av] Co [facility] temperature 2025-03-22 13:20:00 97.6 [degF] Com mon [facility] bmi 2025-03-22 13:20:00 29.38 kg/m2 Comm on [facility] oximetry 2025-03-22 13:20:00 99 % Commo n [facility] respiratory rate 2025-03-22 13:20:00 16 /min Common [facility] blood pressure systolic 2025-03-22 13:20:00 136 mm[Hg] [facility] blood pressure diastolic 2025-03-22 13:20:00 72 mm[Hg] [facility] height 2024-12-22 08:00:00 58 [in_i] Commo n [facility] weight 2024-12-22 08:00:00 137 [lb_av] Comm on [facility] bmi 2024-12-22 08:00:00 28.63 kg/m2 Comm on [facility] blood pressure systolic 2024-12-22 08:00:00 125 mm[Hg] [facility] blood pressure diastolic 2024-12-22 08:00:00 76 mm[Hg] [facility] Body Weight 2024-11-18 00:00:00 135.6 [lb_av] [facility] BP Diastolic 2024-11-18 00:00:00 84 mm[Hg] [facility] BMI (Body Mass Index) 2024-11-18 00:00:00 27.4 kg/m2 [facility] Height 2024-11-18 00:00:00 59 [in_i] [facility] BP Systolic 2024-11-18 00:00:00 150 mm[Hg] [facility] Height 2024-11-16 00:00:00 59 [in_i] [facility] Body Weight 2024-11-16 00:00:00 135.6 [lb_av] [facility] BP Diastolic 2024-11-16 00:00:00 73 mm[Hg] [facility] BMI (Body Mass Index) 2024-11-16 00:00:00 27.4 kg/m2 [facility] BP Systolic 2024-11-16 00:00:00 133 mm[Hg] [facility] Height 2024-11-01 00:00:00 59 [in_i] [facility] Body Weight 2024-11-01 00:00:00 135.6 [lb_av] [facility] BP Diastolic 2024-11-01 00:00:00 84 mm[Hg] [facility] BMI (Body Mass Index) 2024-11-01 00:00:00 27.4 kg/m2 [facility] BP Systolic 2024-11-01 00:00:00 130 mm[Hg] [facility] BP Systolic 2024-09-28 00:00:00 150 mm[Hg] [facility] BP Diastolic 2024-09-28 00:00:00 76 mm[Hg] [facility] Height 2024-09-28 00:00:00 59 [in_i] [facility] BMI (Body Mass Index) 2024-09-28 00:00:00 27.4 kg/m2 [facility] Body Weight 2024-09-28 00:00:00 135.6 [lb_av] [facility] height 2024-09-21 08:00:00 58 [in_i] Commo n [facility] weight 2024-09-21 08:00:00 137 [lb_av] Comm on [facility] temperature 2024-09-21 08:00:00 98.6 [degF] Com [facility] bmi 2024-09-21 08:00:00 28.63 kg/m2 Comm on [facility] blood pressure systolic 2024-09-21 08:00:00 128 mm[Hg] [facility] blood pressure diastolic 2024-09-21 08:00:00 77 mm[Hg] [facility] height 2024-05-19 16:20:00 58 [in_i] Commo n [facility] weight 2024-05-19 16:20:00 135 [lb_av] Comm on [facility] temperature 2024-05-19 16:20:00 97.5 [degF] Com [facility] bmi 2024-05-19 16:20:00 28.21 kg/m2 Comm on [facility] oximetry 2024-05-19 16:20:00 99 % Commo n [facility] blood pressure systolic 2024-05-19 16:20:00 132 mm[Hg] [facility] blood pressure diastolic 2024-05-19 16:20:00 66 mm[Hg] [facility] height 2024-05-19 16:20:00 58 [in_i] Commo n [facility] weight 2024-05-19 16:20:00 135 [lb_av] Comm on [facility] temperature 2024-05-19 16:20:00 97.5 [degF] Com mon [facility] bmi 2024-05-19 16:20:00 28.21 kg/m2 Comm on [facility] oximetry 2024-05-19 16:20:00 99 % Commo n [facility] blood pressure systolic 2024-05-19 16:20:00 132 mm[Hg] [facility] blood pressure diastolic 2024-05-19 16:20:00 66 mm[Hg] [facility] height 2024-01-13 11:20:00 58 [in_i] Commo n [facility] weight 2024-01-13 11:20:00 127 [lb_av] Comm on [facility] bmi 2024-01-13 11:20:00 26.54 kg/m2 Comm on [facility] blood pressure systolic 2024-01-13 11:20:00 135 mm[Hg] [facility] blood pressure diastolic 2024-01-13 11:20:00 76 mm[Hg] [facility] height 2024-01-13 11:20:00 58 [in_i] Commo n [facility] weight 2024-01-13 11:20:00 127 [lb_av] Comm on [facility] bmi 2024-01-13 11:20:00 26.54 kg/m2 Comm on [facility] blood pressure systolic 2024-01-13 11:20:00 135 mm[Hg] [facility] blood pressure diastolic 2024-01-13 11:20:00 76 mm[Hg] [facility] height 2023-09-15 13:30:00 58 [in_i] Commo n [facility] weight 2023-09-15 13:30:00 129.2 [lb_av] Co mmon [facility] temperature 2023-09-15 13:30:00 98.2 [degF] Com mon [facility] bmi 2023-09-15 13:30:00 27 kg/m2 Commo n [facility] oximetry 2023-09-15 13:30:00 98 % Commo n [facility] respiratory rate 2023-09-15 13:30:00 16 /min [facility] blood pressure systolic 2023-09-15 13:30:00 138 mm[Hg] [facility] blood pressure diastolic 2023-09-15 13:30:00 78 mm[Hg] [facility] height 2023-08-14 11:30:00 58 [in_i] Commo n [facility] weight 2023-08-14 11:30:00 120 [lb_av] Comm on [facility] temperature 2023-08-14 11:30:00 98.1 [degF] Com [facility] bmi 2023-08-14 11:30:00 25.08 kg/m2 Comm on [facility] height 2023-07-17 15:00:00 58 [in_i] Commo n [facility] weight 2023-07-17 15:00:00 125.6 [lb_av] Co [facility] temperature 2023-07-17 15:00:00 98.1 [degF] Com [facility] bmi 2023-07-17 15:00:00 26.25 kg/m2 Comm on [facility] oximetry 2023-07-17 15:00:00 99 % Commo n [facility] respiratory rate 2023-07-17 15:00:00 17 /min [facility] blood pressure systolic 2023-07-17 15:00:00 142 mm[Hg] [facility] blood pressure diastolic 2023-07-17 15:00:00 78 mm[Hg] [facility] Procedures Procedure Date / Time Performed Performing Clinicia n Source CT, urogram 2024-11-16 00:00:00 [facility], pelvis, w/wo contrast 2024-10-03 00:00:00 [facility] US TRANSVAGINAL 2024-09-30 [facility] + pelvis, w/wo contrast 2024-09-28 00:00:00 [facility] Dilation and Curettage 1988-11-09 00:00:00 [facility] Tonsillectomy 1969-11-09 00:00:00 [facility] Start Date/Time End Date/Time Encounter Type Admission Type Attending Clinicians Care Facility Care Department Encounter ID Source 2024-05-23 07:36:00 Outpatient SalazarErnesto butterfield [facility] ST[facility] [id number] [facility] 2024-05-03 16:34:00 Outpatient Ernesto Salazar [facility] STLMLC [id number] [facility] 2023-09-15 13:57:00 Outpatient Ernesto Salazar [facility] STLMLC [id number] [facility] 2023-07-17 15:01:00 Outpatient Bhavin Rodriguez [facility] STLC [id number] [facility] 2025-06-20 00:00:00 2025-06-20 00:00:00 (WEB) ST[facility] STLMLC [id number] [facility] 2025-06-19 00:00:00 2025-06-19 00:00:00 OFFICE VISIT ESTAB PT LEVEL 4 [facility] STLC [id number] [facility] 2025-06-07 00:00:00 2025-06-07 00:00:00 (LAB NB) Lab non-billab le STLMLC STLMLC [id number] [facility] 2025-03-31 00:00:00 2025-03-31 00:00:00 (TEL) STLMLC STLMLC [id number] [facility] 2025-03-27 00:00:00 2025-03-27 00:00:00 (WEB) STLMLC STLMLC [id number] [facility] 2025-03-22 00:00:00 2025-03-22 00:00:00 OFFICE VISIT ESTAB PT LEVEL 4 STLMLC STLMLC [id number] [facility] 2024-12-22 00:00:00 2024-12-22 00:00:00 OFFICE VISIT ESTAB PT LEVEL 4 STLMLC STLC [id number] [facility] 2024-12-08 00:00:00 2024-12-08 00:00:00 THEE Saravia: [address], [place] [address] , Ph. [facility] - GC_GCBZW_Camille Javier* [id number] [facility] 2024-11-29 00:00:00 2024-11-29 00:00:00 THEE Saravia: [address], [place] [address] , Ph. [facility] - GC_GCBZW_Camille Javier* [id number] [facility] 2024-11-18 00:00:00 2024-11-18 00:00:00 Shelia Arreola MD: [address], [place] [address] , Ph. [facility] - GC_GCBZW_Nd hansa Javier* [id number] [facility] 2024-11-17 00:00:00 2024-11-17 00:00:00 (WEB) STLC STLC [id number] [facility] 2024-11-17 00:00:00 2024-11-17 00:00:00 (WEB) STLMLC STLMLC [id number] [facility] 2024-11-16 00:00:00 2024-11-16 00:00:00 Shelia Arreola MD: [address], [place] [address] , Ph. [facility] - GC[facility]GCBZW_[facility]* [id number] [facility] 2024-11-01 00:00:00 2024-11-01 00:00:00 Shelia Arreola MD: [address], [place] [address] , Ph. [facility] - GC_GCBZW_Camille santo Yaya* [id number] [facility] 2024-10-20 00:00:00 2024-10-20 00:00:00 JEANCARLOS Hill: [address], [place] [address] , Ph. [facility] - GC_GCBZW_Camille Javier* [id number] [facility] 2024-10-03 00:00:00 2024-10-03 00:00:00 THEE Saravia: [address], [place] [address] , Ph. [facility] - GC_GCBZW_Nd hansa Yaya* [id number] [facility] 2024-09-30 00:00:00 2024-09-30 00:00:00 Shelia Arreola MD: [address], [place] [address] , Ph. [facility] - GC_GCBZW_Camille santo Gates* [id number] [facility] 2024-09-28 00:00:00 2024-09-28 00:00:00 Shelia Arreola MD: [address] [address], [place] [address] , Ph. [facility] - GC_GCBZW_Camille [facility]* [id number] [facility] 2024-09-21 00:00:00 2024-09-21 00:00:00 OFFICE VISIT ESTAB PT LEVEL 4 STLMLC STLMLC [id number] [facility] 2024-05-19 00:00:00 2024-05-19 00:00:00 PREV VISIT EST AGE 65 & OVER STLMLC STLMLC [id number] [facility] 2024-05-09 00:00:00 2024-05-09 00:00:00 (TEL) STLMLC STLMLC [id number] [facility] 2024-02-26 00:00:00 2024-02-26 00:00:00 (WEB) STLMLC STLMLC [id number] [facility] 2024-01-13 00:00:00 2024-01-13 00:00:00 OFFICE VISIT ESTAB PT LEVEL 4 STLMLC STLMLC [id number] [facility] 2023-12-02 00:00:00 2023-12-02 00:00:00 (TEL) STLMLC STLMLC [id number] [facility] 2023-11-30 00:00:00 2023-11-30 00:00:00 (TEL) STLMLC STLMLC [id number] [facility] 2023-10-22 00:00:00 2023-10-22 00:00:00 (TEL) STLMLC STLMLC [id number] [facility] 2023-09-15 00:00:00 2023-09-15 00:00:00 PREV VISIT EST AGE 40-64 STLMLC STLMLC [id number] [facility] 2023-08-14 00:00:00 2023-08-14 00:00:00 OFFICE VISIT ESTAB PT LEVEL 3 STLMLC STLMLC [id number] [facility] 2023-07-17 00:00:00 2023-07-17 00:00:00 OFFICE VISIT NEW PT LEVEL 4 STLMLC STLMLC [id number] [facility] 2023-07-17 00:00:00 2023-07-17 00:00:00 (TEL) STLMLC STLMLC [id number] [facility] 2021-01-22 15:50:00 2021-01-22 15:50:00 Outpatient SOFÍA HERRMANN [facility] [id number] [facility] 2021-01-01 15:50:00 2021-01-01 15:50:00 Outpatient SOFÍA HERRMANN [facility] [id number] [facility] 2020-11-13 11:01:06 2020-11-13 11:21:06 Laboratory Only Lab, John Spaulding [facility] [address] [id number] [facility] 2020-11-13 11:00:00 2020-11-13 11:00:00 Outpatient Elena [facility] [id number] [facility] 2020-11-09 16:26:52 2020-11-09 16:46:52 Laboratory Only Lab, Adc Aurelio Jones [facility] [address] [id number] [facility] 2020-11-09 16:20:00 2020-11-09 16:20:00 Outpatient DOROTHY RYAN [facility] [id number] [facility] Results Test Description Test Time Test Comments Results Result Co mments Source REFLEXIVE URINE [id number] 00:00:00REFLEXIVE URINE CULTURECOMPREHENSIVE METABOLIC [id number] 00:00:00* Test Item Value Reference Range Interpretation Comme nts HEMOGLOBIN A1c (test code = 4548-4) 5.5 % See_Comment [Automated messa ge] The system which generated this result transmitted reference range: 4.2-5.6 %. The reference range was not used to interpret this result as normal/abnormal. NUCLEATED RBCS (test code = 75511-8) 0.0 /100 WBC'S See_Comment [Automated message] The system which generated this result transmitted reference range: 0.0 /100 WBC'S. The reference range was not used to interpret this result as normal/abnormal. ABSOLUTE EOSINOPHILS (test code = 90836-5) 0.13 K/UL See_Comment [Automated message] The system which generated this result transmitted reference range: 0.00-0.50 K/UL. The reference range was not used to interpret this result as normal/abnormal. ABSOLUTE LYMPHOCYTES (test code = 96899-7) 3.24 K/UL See_Comment [Automated message] The system which generated this result transmitted reference range: 1.00-4.00 K/UL. The reference range was not used to interpret this result as normal/abnormal. ABSOLUTE MONOCYTES (test code = 24365-6) 0.92 K/UL See_Comment [Automated message] The system which generated this result transmitted reference range: 0.20-1.00 K/UL. The reference range was not used to interpret this result as normal/abnormal. ABSOLUTE NEUTROPHILS (test code = 78945-2) 7.82 K/UL See_Comment H [Automated message] The system which generated this result transmitted reference range: 1.50-7.50 K/UL. The reference range was not used to interpret this result as normal/abnormal. BASOPHILS (test code = 95518-1) 0.5 % EOSINOPHILS (test code = 30018-7) 1.1 % HEMATOCRIT (test code = 11672-9) 34.2 % See_Comment [Automated messa ge] The system which generated this result transmitted reference range: 34.0-45.0 %. The reference range was not used to interpret this result as normal/abnormal. HEMOGLOBIN (test code = 718-7) 11.8 G/DL See_Comment [Automated messa ge] The system which generated this result transmitted reference range: 11.5-15.5 G/DL. The reference range was not used to interpret this result as normal/abnormal. LYMPHOCYTES (test code = 77162-4) 26.6 % MCH (test code = 73481-5) 33.8 PG See_Comment H [Automated messa ge] The system which generated this result transmitted reference range: 25.0-33.0 PG. The reference range was not used to interpret this result as normal/abnormal. MCHC (test code = 09279-0) 34.5 G/DL See_Comment [Automated messa ge] The system which generated this result transmitted reference range: 31.0-36.0 G/DL. The reference range was not used to interpret this result as normal/abnormal. MCV (test code = 13779-8) 98.0 fL See_Comment [Automated messa ge] The system which generated this result transmitted reference range: 80.0-99.0 fL. The reference range was not used to interpret this result as normal/abnormal. MONOCYTES (test code = 55010-8) 7.5 % NEUTROPHILS (test code = 94108-7) 64.1 % PLATELET COUNT (test code = 35276-7) 299 K/UL See_Comment [Automated messa ge] The system which generated this result transmitted reference range: 130-400 K/UL. The reference range was not used to interpret this result as normal/abnormal. RBC (test code = 52165-4) 3.49 M/UL See_Comment L [Automated messa ge] The system which generated this result transmitted reference range: 3.80-5.40 M/UL. The reference range was not used to interpret this result as normal/abnormal. RDW (test code = 65414-6) 12.7 % See_Comment [Automated messa ge] The system which generated this result transmitted reference range: 11.5-15.0 %. The reference range was not used to interpret this result as normal/abnormal. WBC (test code = 98414-5) 12.2 K/UL See_Comment H [Automated messa ge] The system which generated this result transmitted reference range: 3.5-11.0 K/UL. The reference range was not used to interpret this result as normal/abnormal. CALC LDL CHOL (test code = 73847-3) 103 MG/DL See_Comment H [Automated messa ge] The system which generated this result transmitted reference range: <100 MG/DL. The reference range was not used to interpret this result as normal/abnormal. CHOLESTEROL (test code = 2093-3) 188 MG/DL See_Comment [Automated [place]] The system which generated this result transmitted reference range: <200 MG/DL. The reference range was not used to interpret this result as normal/abnormal. HDL CHOLESTEROL (test code = 2085-9) 53 MG/DL See_Comment [Automated [place]] The system which generated this result transmitted reference range: >39 MG/DL. The reference range was not used to interpret this result as normal/abnormal. RISK RATIO LDL/HDL (test code = 48792-7) 1.94 RATIO See_Comment [Automated message] The system which generated this result transmitted reference range: <3.22 RATIO. The reference range was not used to interpret this result as normal/abnormal. TRIGLYCERIDES (test code = 2571-8) 202 MG/DL See_Comment H [Automated [place]] The system which generated this result transmitted reference range: <150 MG/DL. The reference range was not used to interpret this result as normal/abnormal. ALBUMIN (test code = 1751-7) 4.4 G/DL See_Comment [Automated [place]] The system which generated this result transmitted reference range: 3.5-5.2 G/DL. The reference range was not used to interpret this result as normal/abnormal. ALKALINE PHOSPHATASE (test code = 6768-6) 44 U/L See_Comment [Automated message] The system which generated this result transmitted reference range: 40-142 U/L. The reference range was not used to interpret this result as normal/abnormal. BILIRUBIN, TOTAL (test code = 1975-2) 0.3 MG/DL See_Comment [Automated [place]] The system which generated this result transmitted reference range: <=1.2 MG/DL. The reference range was not used to interpret this result as normal/abnormal. BUN (test code = 3094-0) 15 MG/DL See_Comment [Automated messa ge] The system which generated this result transmitted reference range: 8-23 MG/DL. The reference range was not used to interpret this result as normal/abnormal. CALCIUM (test code = 11675-7) 9.5 MG/DL See_Comment [Automated messa ge] The system which generated this result transmitted reference range: 8.5-10.5 MG/DL. The reference range was not used to interpret this result as normal/abnormal. CALC A/G RATIO (test code = 1759-0) 1.9 RATIO See_Comment [Automated messa ge] The system which generated this result transmitted reference range: 1.0-2.6 RATIO. The reference range was not used to interpret this result as normal/abnormal. CALC BUN/CREAT (test code = 3097-3) 15 RATIO See_Comment [Automated messa ge] The system which generated this result transmitted reference range: 6-28 RATIO. The reference range was not used to interpret this result as normal/abnormal. CALC GLOBULIN (test code = 74647-9) 2.3 G/DL See_Comment [Automated messa ge] The system which generated this result transmitted reference range: 1.9-3.7 G/DL. The reference range was not used to interpret this result as normal/abnormal. CARBON DIOXIDE (test code = 1963-8) 24 MEQ/L See_Comment [Automated messa ge] The system which generated this result transmitted reference range: 19-31 MEQ/L. The reference range was not used to interpret this result as normal/abnormal. CHLORIDE (test code = 2075-0) 94 MEQ/L See_Comment L [Automated messa ge] The system which generated this result transmitted reference range: 95-107 MEQ/L. The reference range was not used to interpret this result as normal/abnormal. CREATININE (test code = 2160-0) 1.02 MG/DL See_Comment [Automated messa ge] The system which generated this result transmitted reference range: 0.60-1.30 MG/DL. The reference range was not used to interpret this result as normal/abnormal. eGFR (2020 CKD-EPI) (test code = 58361-8) 61 ML/MIN/1.73 See_Comment [Automated message] The system which generated this result transmitted reference range: >60 ML/MIN/1.73. The reference range was not used to interpret this result as normal/abnormal. GLUCOSE (test code = 1558-6) 93 MG/DL See_Comment [Automated messa ge] The system which generated this result transmitted reference range: 70-99 MG/DL. The reference range was not used to interpret this result as normal/abnormal. POTASSIUM (test code = 2823-3) 4.0 MEQ/L See_Comment [Automated messa ge] The system which generated this result transmitted reference range: 3.5-5.4 MEQ/L. The reference range was not used to interpret this result as normal/abnormal. PROTEIN, TOTAL (test code = 2885-2) 6.7 G/DL See_Comment [Automated messa ge] The system which generated this result transmitted reference range: 6.1-8.3 G/DL. The reference range was not used to interpret this result as normal/abnormal. AST (test code = 1920-8) 20 U/L See_Comment [Automated messa ge] The system which generated this result transmitted reference range: 9-40 U/L. The reference range was not used to interpret this result as normal/abnormal. ALT (test code = 1742-6) 14 U/L See_Comment [Automated messa ge] The system which generated this result transmitted reference range: 5-40 U/L. The reference range was not used to interpret this result as normal/abnormal. SODIUM (test code = 2951-2) 133 MEQ/L See_Comment [Automated messa ge] The system which generated this result transmitted reference range: 133-146 MEQ/L. The reference range was not used to interpret this result as normal/abnormal. Tissue Pathology biopsy [id number] 00:00:00Clinical InformationPathologistA SourceA Gross DescriptionA DiagnosisA CommentPrivia Medicalpregnancy test, [id number] 08:31:00* Test Item Value Reference Range Interpretation Comme nts HCG (test code = HCG) negative [facility] Medicalurinalysis, [id number] 07:54:43* Test Item Value Reference Range Interpretation Comme nts Leukocytes (test code = Leukocytes) Negative Nitrite (test code = Nitrite) negative Urobilinogen (test code = Urobilinogen) Normal Protein (test code = Protein) Negative pH (test code = pH) 7.5 Blood (test code = Blood) Non-Hemolyzed: Moderate Specific Alsey (test code = Specific Alsey) 1.005 Ketone (test code = Ketone) Negative Bilirubin (test code = Bilirubin) Negative Glucose (test code = Glucose) Negative Appearance (test code = Appearance) Clear Color (test code = Color) Pale Yellow [facility] MedicalCancer Ag 125 [Units/volume] in Serum or [id number] 00:00:00 * Test Item Value Reference Range Interpretation Comme nts CA-125 (test code = CA-125) 7.8 U/mL 6.4-38.1 [facility] MedicalUA/M w/rflx culture, [id number] 00:00:00* Test Item Value Reference Range Interpretation Comme nts specific gravity (test code = specific gravity) 1.011 1.005-1.030 pH (test code = pH) 8.0 5.0-7.5 H urine-color (test code = urine-color) YELLOW yellow appearance (test code = appearance) CLEAR clear WBC esterase (test code = WB C esterase) NEGATIVE negative protein (test code = protein) NEGATIVE negative/trace glucose (test code = glucose) NEGATIVE negative ketones (test code = ketones) NEGATIVE negative occult blood (test code = oc cult blood) TRACE negative A bilirubin (test code = bilirubin) NEGATIVE negative urobilinogen,semi-qn (test c ode = urobilinogen,semi-qn) 0.2 mg/dL 0.2-1.0 nitrite, urine (test code = nitrite, urine) NEGATIVE negative microscopic examination (jorge t code = microscopic examination) urinalysis reflex (test code = urinalysis reflex) COMMENT [facility] Medicalurinalysis, [id number] 00:00:00* Test Item Value Reference Range Interpretation Comme nts WBC (test code = WBC) None seen 0-5 RBC (test code = RBC) 11-30 0-2 A epithelial cells (non renal) (test code = epithelial cells (non renal)) None seen 0-10 epithelial cells (renal) (te st code = epithelial cells (renal)) Comment casts (test code = casts) None seen none seen cast type (test code = cast type) Comment crystals (test code = crystals) Comment crystal type (test code = cr ystal type) Comment mucus threads (test code = m ucus threads) Comment bacteria (test code = bacteria) Few none seen/few yeast (test code = yeast) Comment trichomonas (test code = trichomonas) Comment comment (test code = comment) Comment [facility] Medicalurinalysis, [id number] 08:29:35* Test Item Value Reference Range Interpretation Comme nts Leukocytes (test code = Leukocytes) Negative Nitrite (test code = Nitrite) negative Urobilinogen (test code = Urobilinogen) Normal Protein (test code = Protein) Negative pH (test code = pH) 8 Blood (test code = Blood) Non-Hemolyzed: Moderate Specific Alsey (test code = Specific Alsey) 1.005 Ketone (test code = Ketone) Negative Bilirubin (test code = Bilirubin) Negative Glucose (test code = Glucose) Negative Appearance (test code = Appearance) Clear Color (test code = Color) Yellow [facility] MedicalINDICATED URINE [id number] 00:00:00* Test Item Value Reference Range Interpretation Comme nts NUCLEATED RBCS (test code = 31906-6) 0.0 /100 WBC'S See_Comment [Automated message] The system which generated this result transmitted reference range: 0.0 /100 WBC'S. The reference range was not used to interpret this result as normal/abnormal. ABSOLUTE EOSINOPHILS (test code = 63348-8) 0.11 K/UL See_Comment [Automated message] The system which generated this result transmitted reference range: 0.00-0.50 K/UL. The reference range was not used to interpret this result as normal/abnormal. ABSOLUTE LYMPHOCYTES (test code = 42740-3) 3.24 K/UL See_Comment [Automated message] The system which generated this result transmitted reference range: 1.00-4.00 K/UL. The reference range was not used to interpret this result as normal/abnormal. ABSOLUTE MONOCYTES (test code = 40482-3) 0.71 K/UL See_Comment [Automated message] The system which generated this result transmitted reference range: 0.20-1.00 K/UL. The reference range was not used to interpret this result as normal/abnormal. ABSOLUTE NEUTROPHILS (test code = 21546-5) 6.16 K/UL See_Comment [Automated message] The system which generated this result transmitted reference range: 1.50-7.50 K/UL. The reference range was not used to interpret this result as normal/abnormal. BASOPHILS (test code = 80636-6) 0.7 % EOSINOPHILS (test code = 83562-3) 1.1 % HEMATOCRIT (test code = 90889-7) 36.6 % See_Comment [Automated message] The system which generated this result transmitted reference range: 34.0-45.0 %. The reference range was not used to interpret this result as normal/abnormal. HEMOGLOBIN (test code = 718-7) 12.1 G/DL See_Comment [Automated message] The system which generated this result transmitted reference range: 11.5-15.5 G/DL. The reference range was not used to interpret this result as normal/abnormal. LYMPHOCYTES (test code = 93593-1) 31.3 % MCH (test code = 18982-7) 32.3 PG See_Comment [Automated message] The system which generated this result transmitted reference range: 25.0-33.0 PG. The reference range was not used to interpret this result as normal/abnormal. MCHC (test code = 74904-2) 33.1 G/DL See_Comment [Automated message] The system which generated this result transmitted reference range: 31.0-36.0 G/DL. The reference range was not used to interpret this result as normal/abnormal. MCV (test code = 15016-8) 97.6 fL See_Comment [Automated message] The system which generated this result transmitted reference range: 80.0-99.0 fL. The reference range was not used to interpret this result as normal/abnormal. MONOCYTES (test code = 70364-7) 6.9 % NEUTROPHILS (test code = 49908-8) 59.4 % PLATELET COUNT (test code = 85749-2) 296 K/UL See_Comment [Automated message] The system which generated this result transmitted reference range: 130-400 K/UL. The reference range was not used to interpret this result as normal/abnormal. RBC (test code = 76390-5) 3.75 M/UL See_Comment L [Automated message] The system which generated this result transmitted reference range: 3.80-5.40 M/UL. The reference range was not used to interpret this result as normal/abnormal. RDW (test code = 60761-6) 12.0 % See_Comment [Automated message] The system which generated this result transmitted reference range: 11.5-15.0 %. The reference range was not used to interpret this result as normal/abnormal. WBC (test code = 11350-9) 10.4 K/UL See_Comment [Automated message] The system which generated this result transmitted reference range: 3.5-11.0 K/UL. The reference range was not used to interpret this result as normal/abnormal. HEMOGLOBIN A1c (test code = 4548-4) 6.0 % See_Comment H [Automated message] The system which generated this result transmitted reference range: 4.2-5.6 %. The reference range was not used to interpret this result as normal/abnormal. APPEARANCE (test code = 5767-9) CLEAR CLEAR BACTERIA (test code = 15121-6) NONE SEEN NONE SEEN BILIRUBIN (test code = 5770-3) NEGATIVE NEGATIVE CASTS, HYALINE (test code = 56062-1) NONE SEEN NONE-TRACE COLOR (test code = 5778-6) YELLOW YELLOW-STRAW EPITHELIAL CELLS (test code = 61680-7) 0-5 /HPF See_Comment [Automated message] The system which generated this result transmitted reference range: 0-10 /HPF. The reference range was not used to interpret this result as normal/abnormal. GLUCOSE (test code = 5792-7) NEGATIVE NEGATIVE KETONES (test code = 5797-6) NEGATIVE NEGATIVE LEUKOCYTE ESTERASE (test code = 5799-2) 1+ NEGATIVE A NITRITE (test code = 5802-4) NEGATIVE NEGATIVE OCCULT BLOOD (test code = 41663-1) 2+ NEGATIVE A pH (test code = 5803-2) 6.0 5.0-9.0 PROTEIN (test code = 10097-8) NEGATIVE NEGATIVE RED BLOOD CELLS (test code = 01350-3) 16-20 /HPF See_Comment A [Automated message] The system which generated this result transmitted reference range: 0-2 /HPF. The reference range was not used to interpret this result as normal/abnormal. SPECIFIC GRAVITY (test code = 5811-5) 1.017 1.005-1.035 UROBILINOGEN (test code = 78856-1) 0.2 MG/DL See_Comment [Automated message] The system which generated this result transmitted reference range: <=2.0 MG/DL. The reference range was not used to interpret this result as normal/abnormal. WHITE BLOOD CELLS (test code = 53706-5) 16-20 /HPF See_Comment A [Automated message] The system which generated this result transmitted reference range: 0-5 /HPF. The reference range was not used to interpret this result as normal/abnormal. CALC LDL CHOL (test code = 84272-9) 97 MG/DL See_Comment [Automated message] The system which generated this result transmitted reference range: <100 MG/DL. The reference range was not used to interpret this result as normal/abnormal. CHOLESTEROL (test code = 2093-3) 180 MG/DL See_Comment [Automated message] The system which generated this result transmitted reference range: <200 MG/DL. The reference range was not used to interpret this result as normal/abnormal. HDL CHOLESTEROL (test code = 2085-9) 56 MG/DL See_Comment [Automated message] The system which generated this result transmitted reference range: >39 MG/DL. The reference range was not used to interpret this result as normal/abnormal. RISK RATIO LDL/HDL (test code = 69064-5) 1.73 RATIO See_Comment [Automated message] The system which generated this result transmitted reference range: <3.22 RATIO. The reference range was not used to interpret this result as normal/abnormal. TRIGLYCERIDES (test code = 2571-8) 178 MG/DL See_Comment H [Automated message] The system which generated this result transmitted reference range: <150 MG/DL. The reference range was not used to interpret this result as normal/abnormal. ALBUMIN (test code = 1751-7) 4.1 G/DL See_Comment [Automated message] The system which generated this result transmitted reference range: 3.5-5.2 G/DL. The reference range was not used to interpret this result as normal/abnormal. ALKALINE PHOSPHATASE (test code = 6768-6) 46 U/L See_Comment [Automated message] The system which generated this result transmitted reference range: 40-140 U/L. The reference range was not used to interpret this result as normal/abnormal. BILIRUBIN, TOTAL (test code = 1975-2) 0.2 MG/DL See_Comment [Automated message] The system which generated this result transmitted reference range: <=1.2 MG/DL. The reference range was not used to interpret this result as normal/abnormal. BUN (test code = 3094-0) 16 MG/DL See_Comment [Automated message] The system which generated this result transmitted reference range: 8-23 MG/DL. The reference range was not used to interpret this result as normal/abnormal. CALCIUM (test code = 47686-9) 9.8 MG/DL See_Comment [Automated message] The system which generated this result transmitted reference range: 8.5-10.5 MG/DL. The reference range was not used to interpret this result as normal/abnormal. CALC A/G RATIO (test code = 1759-0) 1.8 RATIO See_Comment [Automated message] The system which generated this result transmitted reference range: 1.0-2.6 RATIO. The reference range was not used to interpret this result as normal/abnormal. CALC BUN/CREAT (test code = 3097-3) 18 RATIO See_Comment [Automated message] The system which generated this result transmitted reference range: 6-28 RATIO. The reference range was not used to interpret this result as normal/abnormal. CALC GLOBULIN (test code = 92695-9) 2.3 G/DL See_Comment [Automated message] The system which generated this result transmitted reference range: 1.9-3.7 G/DL. The reference range was not used to interpret this result as normal/abnormal. CARBON DIOXIDE (test code = 1963-8) 27 MEQ/L See_Comment [Automated message] The system which generated this result transmitted reference range: 19-31 MEQ/L. The reference range was not used to interpret this result as normal/abnormal. CHLORIDE (test code = 2075-0) 100 MEQ/L See_Comment [Automated message] The system which generated this result transmitted reference range: 95-107 MEQ/L. The reference range was not used to interpret this result as normal/abnormal. CREATININE (test code = 2160-0) 0.90 MG/DL See_Comment [Automated message] The system which generated this result transmitted reference range: 0.60-1.30 MG/DL. The reference range was not used to interpret this result as normal/abnormal. eGFR (2020 CKD-EPI) (test code = 11106-8) 71 ML/MIN/1.73 See_Comment [Automated message] The system which generated this result transmitted reference range: >60 ML/MIN/1.73. The reference range was not used to interpret this result as normal/abnormal. GLUCOSE (test code = 1558-6) 94 MG/DL See_Comment [Automated message] The system which generated this result transmitted reference range: 70-99 MG/DL. The reference range was not used to interpret this result as normal/abnormal. POTASSIUM (test code = 2823-3) 4.1 MEQ/L See_Comment [Automated message] The system which generated this result transmitted reference range: 3.5-5.4 MEQ/L. The reference range was not used to interpret this result as normal/abnormal. PROTEIN, TOTAL (test code = 2885-2) 6.4 G/DL See_Comment [Automated message] The system which generated this result transmitted reference range: 6.1-8.3 G/DL. The reference range was not used to interpret this result as normal/abnormal. AST (test code = 1920-8) 16 U/L See_Comment [Automated message] The system which generated this result transmitted reference range: 9-40 U/L. The reference range was not used to interpret this result as normal/abnormal. ALT (test code = 1742-6) 17 U/L See_Comment [Automated message] The system which generated this result transmitted reference range: 5-40 U/L. The reference range was not used to interpret this result as normal/abnormal. SODIUM (test code = 2951-2) 137 MEQ/L See_Comment [Automated message] The system which generated this result transmitted reference range: 133-146 MEQ/L. The reference range was not used to interpret this result as normal/abnormal. CBC W/AUTO [id number] 00:00:00* Test Item Value Reference Range Interpretation Comme nts NUCLEATED RBCS (test code = 39693-4) 0.0 /100 WBC'S See_Comment [Automated [place] ge] The system which generated this result transmitted reference range: 0.0 /100 WBC'S. The reference range was not used to interpret this result as normal/abnormal. ABSOLUTE EOSINOPHILS (test code = 80287-9) 0.15 K/UL See_Comment [Automated messa ge] The system which generated this result transmitted reference range: 0.00-0.50 K/UL. The reference range was not used to interpret this result as normal/abnormal. ABSOLUTE LYMPHOCYTES (test code = 70085-7) 3.48 K/UL See_Comment [Automated messa ge] The system which generated this result transmitted reference range: 1.00-4.00 K/UL. The reference range was not used to interpret this result as normal/abnormal. ABSOLUTE MONOCYTES (test code = 84934-0) 0.74 K/UL See_Comment [Automated messa ge] The system which generated this result transmitted reference range: 0.20-1.00 K/UL. The reference range was not used to interpret this result as normal/abnormal. ABSOLUTE NEUTROPHILS (test code = 85082-2) 4.13 K/UL See_Comment [Automated messa ge] The system which generated this result transmitted reference range: 1.50-7.50 K/UL. The reference range was not used to interpret this result as normal/abnormal. BASOPHILS (test code = 57191-0) 0.6 % EOSINOPHILS (test code = 08887-1) 1.7 % HEMATOCRIT (test code = 08016-8) 34.2 % See_Comment [Automated messa ge] The system which generated this result transmitted reference range: 34.0-45.0 %. The reference range was not used to interpret this result as normal/abnormal. HEMOGLOBIN (test code = 718-7) 11.5 G/DL See_Comment [Automated messa ge] The system which generated this result transmitted reference range: 11.5-15.5 G/DL. The reference range was not used to interpret this result as normal/abnormal. LYMPHOCYTES (test code = 85300-6) 40.5 % MCH (test code = 59308-8) 32.3 PG See_Comment [Automated messa ge] The system which generated this result transmitted reference range: 25.0-33.0 PG. The reference range was not used to interpret this result as normal/abnormal. MCHC (test code = 51698-5) 33.6 G/DL See_Comment [Automated messa ge] The system which generated this result transmitted reference range: 31.0-36.0 G/DL. The reference range was not used to interpret this result as normal/abnormal. MCV (test code = 21331-8) 96.1 fL See_Comment [Automated messa ge] The system which generated this result transmitted reference range: 80.0-99.0 fL. The reference range was not used to interpret this result as normal/abnormal. MONOCYTES (test code = 84741-0) 8.6 % NEUTROPHILS (test code = 54869-1) 48.1 % PLATELET COUNT (test code = 44538-5) 292 K/UL See_Comment [Automated messa ge] The system which generated this result transmitted reference range: 130-400 K/UL. The reference range was not used to interpret this result as normal/abnormal. RBC (test code = 74144-0) 3.56 M/UL See_Comment L [Automated messa ge] The system which generated this result transmitted reference range: 3.80-5.40 M/UL. The reference range was not used to interpret this result as normal/abnormal. RDW (test code = 89030-1) 12.6 % See_Comment [Automated messa ge] The system which generated this result transmitted reference range: 11.5-15.0 %. The reference range was not used to interpret this result as normal/abnormal. WBC (test code = 97845-2) 8.6 K/UL See_Comment [Automated messa ge] The system which generated this result transmitted reference range: 3.5-11.0 K/UL. The reference range was not used to interpret this result as normal/abnormal. CBC W/AUTO [id number] 00:00:00* Test Item Value Reference Range Interpretation Comme nts NUCLEATED RBCS (test code = 79211-4) 0.0 /100 WBC'S See_Comment [Automated messa ge] The system which generated this result transmitted reference range: 0.0 /100 WBC'S. The reference range was not used to interpret this result as normal/abnormal. ABSOLUTE EOSINOPHILS (test code = 00622-6) 0.12 K/UL See_Comment [Automated messa ge] The system which generated this result transmitted reference range: 0.00-0.50 K/UL. The reference range was not used to interpret this result as normal/abnormal. ABSOLUTE LYMPHOCYTES (test code = 04648-3) 3.33 K/UL See_Comment [Automated messa ge] The system which generated this result transmitted reference range: 1.00-4.00 K/UL. The reference range was not used to interpret this result as normal/abnormal. ABSOLUTE MONOCYTES (test code = 67477-1) 0.72 K/UL See_Comment [Automated messa ge] The system which generated this result transmitted reference range: 0.20-1.00 K/UL. The reference range was not used to interpret this result as normal/abnormal. ABSOLUTE NEUTROPHILS (test code = 06201-6) 3.93 K/UL See_Comment [Automated messa ge] The system which generated this result transmitted reference range: 1.50-7.50 K/UL. The reference range was not used to interpret this result as normal/abnormal. BASOPHILS (test code = 40160-1) 0.5 % EOSINOPHILS (test code = 83727-3) 1.5 % HEMATOCRIT (test code = 57407-8) 34.4 % See_Comment [Automated messa ge] The system which generated this result transmitted reference range: 34.0-45.0 %. The reference range was not used to interpret this result as normal/abnormal. HEMOGLOBIN (test code = 718-7) 11.8 G/DL See_Comment [Automated messa ge] The system which generated this result transmitted reference range: 11.5-15.5 G/DL. The reference range was not used to interpret this result as normal/abnormal. LYMPHOCYTES (test code = 78164-3) 40.8 % MCH (test code = 26069-0) 32.7 PG See_Comment [Automated messa ge] The system which generated this result transmitted reference range: 25.0-33.0 PG. The reference range was not used to interpret this result as normal/abnormal. MCHC (test code = 91351-6) 34.3 G/DL See_Comment [Automated messa ge] The system which generated this result transmitted reference range: 31.0-36.0 G/DL. The reference range was not used to interpret this result as normal/abnormal. MCV (test code = 37150-6) 95.3 fL See_Comment [Automated messa ge] The system which generated this result transmitted reference range: 80.0-99.0 fL. The reference range was not used to interpret this result as normal/abnormal. MONOCYTES (test code = 78752-8) 8.8 % NEUTROPHILS (test code = 99613-3) 48.0 % PLATELET COUNT (test code = 29621-9) 319 K/UL See_Comment [Automated [place] [employer]] The system which generated this result transmitted reference range: 130-400 K/UL. The reference range was not used to interpret this result as normal/abnormal. RBC (test code = 43255-4) 3.61 M/UL See_Comment L [Automated [place] [employer]] The system which generated this result transmitted reference range: 3.80-5.40 M/UL. The reference range was not used to interpret this result as normal/abnormal. RDW (test code = 80695-3) 12.5 % See_Comment [Automated [employer] [employer]] The system which generated this result transmitted reference range: 11.5-15.0 %. The reference range was not used to interpret this result as normal/abnormal. WBC (test code = 94337-3) 8.2 K/UL See_Comment [Automated [employer] [employer]] The system which generated this result transmitted reference range: 3.5-11.0 K/UL. The reference range was not used to interpret this result as normal/abnormal. 3D SCR CHRISTEN BILAT W/CAD3D SCR CHRISTEN BILAT W/CAD
[2025-08-14] MEDS ORDERED: ASPIRIN 81 MG CHEWABLE TABLET ONE (19:20)
[2025-08-14 20:09] LABS: Absolute Lymphocytes (CBC) 4.3 K/uL (0.7-4.9); Hematocrit 38.7 % (36.0-45.0); Hemoglobin 13.1 g/dL (12.0-15.0); MCH 31.7 pg (27.0-35.0); MCHC 34.0 g/dL (32.0-36.0); MCV 93.1 fL (80-100); MPV 8.2 fL (7.6-11.3); Nucleated RBC Absolute Count 0.0 (0-0); Nucleated Red Blood Cells % 0.0 % (0-0); RBC Red Blood Cell Count 4.15 M/uL (3.86-4.86); White Blood Count 10.70 thou/uL (4.3-10.9)
[2025-08-14 20:17] LABS: PT Prothrombin Time 11.8 SECONDS (10-13.0); Protime INR 1.05
--- NOTE | 2025-08-14 20:22 | RAD REPORT ---
EXAM: Chest Single View HISTORY: 64 years Female CHEST PAIN COMPARISON: No prior exams FINDINGS: LUNGS/PLEURA: The lungs are clear. No pleural effusions or pneumothorax. No pulmonary edema. CARDIAC/MEDIASTINUM: Mild cardiomegaly UPPER ABDOMEN: No significant abnormality. BONES: No acute abnormality. LINES/TUBES/OTHER: N/A IMPRESSION: No evidence of acute cardiopulmonary disease.
[2025-08-14 20:31] LABS: ALT/SGPT 26 U/L (13-56); AST/SGOT 19 U/L (15-37); Albumin 3.7 g/dL (3.4-5.0); Albumin/Globulin Ratio 1.1 (1.1-1.8); Alkaline Phosphatase 48 U/L (45-117); Anion Gap 6.7 mEq/L (5.0-15.0); BUN Blood Urea Nitrogen 15 mg/dL (7-18); Globulin 3.4 g/dL (2.3-3.5); Glucose Level 93 mg/dL (74-106); Magnesium 2.2 mg/dL (1.6-2.4); NT PRO-BNP 1283 pg/mL (<125); Potassium 3.7 mEq/L (3.5-5.1); Troponin High Sensitivity 6.9 pg/mL (<58.9)
[2025-08-14 20:35] LABS: Bilirubin Indirect, Calculated 0.2 mg/dL (0.2-0.8)
--- NOTE | 2025-08-14 21:42 | EDPHYS ---
Physician Documentation [facility] Name: Kimberly Mosquera Age: 64 yrs Sex: Female : 1960 Arrival Date: 08/14/2025 Time: 18:43 Bed 17 Private MD: ED Physician Jamal Salazar HPI: 08/14 19:18 This 64 yrs old Female presents to ER via Ambulatory with complaints of High Blood sb4 Pressure, Shortness Of Breath. 19:18 Patient states that she has been more stressed than usual today, her blood pressure has sb4 been elevated, and she has been having some chest tightness and shortness of breath. She states this is secondary to family medical issues. States that she went to urgent care, they checked her blood pressure and did an EKG and told her to come to the ED because her blood pressure was very elevated and her EKG was borderline. She does report a history of hypertension and hyper cholesterolemia. Reports compliance with her medications. Does see a spouting installer regularly. Reports a mild headache, denies any dizziness or blurry vision. Historical: - Allergies: 18:51 No Known Allergies; me1 - PMHx: 18:51 Hypertensive disorder; Hypercholesterolemia; Anxiety; me1 - PSHx: 18:51 Tonsillectomy; me1 - Immunization history:: Adult Immunizations up to date. - Infectious Disease History:: Denies. - Social history:: Smoking status: Patient/guardian denies using tobacco, but has a distant history of tobacco abuse. ROS: 19:18 Constitutional: Negative for fever, chills, and weight loss, sb4 19:18 Cardiovascular: Positive for chest pain, 19:18 Respiratory: Positive for shortness of breath, 19:18 Neuro: Positive for headache, 19:18 All other systems are negative, Exam: 19:18 Constitutional: This is a well developed, well nourished patient who is awake, alert, sb4 and in no acute distress. Head/Face: Normocephalic, atraumatic. Eyes: Extra-ocular motions intact. Periorbital areas with no swelling, redness, or edema. ENT: Mucous membranes moist. Cardiovascular: Regular rate and rhythm with a normal S1 and S2. Respiratory: No increased work of breathing, no retractions or nasal flaring. Abdomen/GI: Soft, non-tender, no distension. Skin: Warm, dry with normal turgor. Normal color with no rashes, no lesions, and no evidence of cellulitis. Vital Signs: 18:48 BP 215 / 106; Pulse 69; Resp 19; Temp 98.2; Pulse Ox 100% ; Weight 61.23 kg; Height 4 me1 ft. 11 in. ; Pain 4/10; 19:26 BP 205 / 93; Pulse 60; Resp 18; Pulse Ox 100% ; cp4 20:44 BP 147 / 56; Pulse 78; Resp 18; Pulse Ox 100% ; cp4 21:52 BP 159 / 82; Pulse 61; Resp 18; Pulse Ox 99% ; cp4 18:48 Body Mass Index 27.27 (61.23 kg, 149.86 cm) me1 18:48 Pain Scale: Adult me1 MDM: 18:47 Medical Screening Exam initiated sb4 19:03 External Records Reviewed: EKG obtained at urgent care at 1817 shows sinus rhythm with sb4 a rate of 65, NM interval 138, QRS 118, QTc of 427, no ST changes noted. 19:51 Differential diagnosis: hypertensive crisis, Malignant HTN. Data interpreted: Cardiac sb4 monitor: rate is 60 beats/min, rhythm is normal sinus rhythm, with no ectopy, Interpretation: normal rate. Data reviewed: vital signs, nurses notes, lab test result(s), EKG, radiologic studies, plain films. Care significantly affected by the following chronic conditions: Hypertension. 21:47 Consideration of Admission/Observation Escalation of care including sb4 admission/observation considered. Scoring Tools HEART Score: History: ECG: Age: Risk Factors: 1 or 2 risk factors (1), Troponin: Total Score = 3. Counseling: I had a detailed discussion with the patient and/or guardian regarding the historical points, exam findings, and any diagnostic results supporting the discharge/admit diagnosis, the presence of at least one elevated blood pressure reading (>120/80) during this emergency department visit, lab results, radiology results, the need for outpatient follow up, a spouting installer, to return to the emergency department if symptoms worsen or persist or if there are any questions or concerns that arise at home. 08/14 19:02 Order name: Basic Metabolic Panel; Complete Time: 20:35 sb4 08/14 19: Order name: CBC with Diff; Complete Time: 20:14 sb4 10/06 19:02 Order name: LFT's; Complete Time: 20:35 sb4 08/14 19:02 Order name: Magnesium; Complete Time: 20:35 sb4 08/14 19:02 Order name: NT PRO-BNP; Complete Time: 20:35 sb4 08/14 19:02 Order name: PT-INR; Complete Time: 20:18 sb4 08/14 19:02 Order name: Troponin HS; Complete Time: 20:35 sb4 08/14 20:42 Order name: Troponin High Sensitivity; Complete Time: 21:33 sb4 08/14 19:02 Order name: XRAY Chest (1 view); Complete Time: 20:27 sb4 08/14 19:02 Order name: Cardiac monitoring; Complete Time: 19:15 sb4 08/14 19:02 Order name: EKG - Nurse/Tech; Complete Time: 19:26 sb4 08/14 19:02 Order name: IV Saline Lock; Complete Time: 19:15 sb4 08/14 19:02 Order name: Labs collected and sent; Complete Time: 19:15 sb4 08/14 19:02 Order name: O2 Per Protocol; Complete Time: 19:15 sb4 08/14 19:02 Order name: O2 Sat Monitoring; Complete Time: 19:15 sb4 EC:31 Rate is 65 beats/min. Rhythm is regular, Normal Sinus Rhythm. NM interval is normal at sb4 140 msec. QRS interval is normal at 112 msec. QT interval is prolonged at 434 msec. No Q waves. T waves are Normal. No ST changes noted. Clinical impression: Normal ECG. Interpreted by me. Reviewed by me. Administered Medications: 19:25 Not Given (Already takenn): aspirinchewable tablet 324 mg PO once; 81 mg tablets x 4 cp4 19:26 Drug: cloNIDine PO 0.2 mg PO once Route: PO; cp4 20:45 Follow up: Response: No adverse reaction; Blood pressure is lowered cp4 20:45 CANCELLED (Inappropriate at this time): [id number] mg IVP once sb4 Disposition Summary: 08/14/25 21:41 Discharge Ordered Notes: Location: Home sb4 Problem: new sb4 Symptoms: have improved sb4 Condition: Stable sb4 Diagnosis - Essential (primary) hypertension sb4 Followup: sb4 - With: Emergency Department - When: As needed - Reason: Trouble breathing, Worsening of condition Discharge Instructions: - Discharge Summary Sheet sb4 - Hypertension, Adult sb4 - How to Take Your Blood Pressure, [id number] sb4 - Managing Your Hypertension sb4 Forms: - Patient Portal Instructions sb4 - Leadership Thank You Letter sb4 Prescriptions: - clonidine HCl 0.1 mg Oral tablet - take 1 tablet ORAL route once PRN blood pressure sysolic > 180 or diastolic > sb4 100; 10 tablet; Refills: 0, Product Selection Permitted Signatures: Dispatcher [employer] EDMS Monica Diego, PA-C PA-C sb4 Mari Tadeo, RN RN me1 Iesha Erickson cp4 Corrections: (The following items were deleted from the chart) 19:02 19:02 BASIC METABOLIC PANEL+C.LAB.BRZ ordered. EDMS EDMS 19:02 19:02 CBC+H.LAB.BRZ ordered. EDMS EDMS 19:02 19:02 HEPATIC FUNCTION+C.LAB.BRZ ordered. EDMS EDMS 19:02 19:02 MAGNESIUM+C.LAB.BRZ ordered. EDMS EDMS 19:02 19:02 PROBNP+C.LAB.BRZ ordered. EDMS EDMS 19:02 19:02 PROTIME (+INR)+COAG.LAB.BRZ ordered. EDMS EDMS 19:02 19:02 Troponin High Sensitivity+C.LAB.BRZ ordered. EDMS EDMS 19:02 19:02 Chest Single View+RAD.RAD.BRZ ordered. EDMS EDMS 20:45 20:31 hydrALAZINE IVP 10 mg IVP once ordered. sb4 sb4
--- NOTE | 2025-08-14 21:42 | ER ---
Nurse's Notes [facility] Name: Kimberly Mosquera Age: 64 yrs Sex: Female : 1960 Arrival Date: 08/14/2025 Time: 18:43 Bed 17 Private MD: Diagnosis: Essential (primary) hypertension Presentation: 08/14 18:48 Chief complaint: Patient states: has been monitoring her BP and it has been high today. me1 At home BP was 195/95, patient went to Urgent care and was sent here. Reports some SOB and chest tightness. Denies nausea.. Coronavirus screen: Vaccine status: Patient reports receiving the 2nd dose of the covid vaccine. At this time, the client does not indicate any symptoms associated with coronavirus-19. Ebola Screen: No symptoms or risks identified at this time. Initial Sepsis Screen: Does the patient meet any 2 criteria? No. Patient's initial sepsis screen is negative. Does the patient have a suspected source of infection? No. Patient's initial sepsis screen is negative. Risk Assessment: Do you want to hurt yourself or someone else? Patient reports no desire to harm self or others. Onset of symptoms was August 13, 2025. 18:48 Method Of Arrival: Ambulatory me1 18:48 Acuity: ARTUR 3 me1 Triage Assessment: 22:00 General: Appears in no apparent distress. comfortable. Respiratory: Onset: The cp4 symptoms/episode began/occurred. Respiratory: Reports shortness of breath at rest the patient has mild shortness of breath. Historical: - Allergies: 18:51 No Known Allergies; me1 - PMHx: 18:51 Hypertensive disorder; Hypercholesterolemia; Anxiety; me1 - PSHx: 18:51 Tonsillectomy; me1 - Immunization history:: Adult Immunizations up to date. - Infectious Disease History:: Denies. - Social history:: Smoking status: Patient/guardian denies using tobacco, but has a distant history of tobacco abuse. Screenin:16 [facility] ED Fall Risk Assessment (Adult) History of falling in the last 3 months, cp4 including since admission No falls in past 3 months (0 pts) Confusion or Disorientation No (0 pts) Intoxicated or Sedated No (0 pts) Impaired Gait No (0 pts) Mobility Assist Device Used No (0 pt) Altered Elimination No (0 pt) Score/Fall Risk Level 0 - 2 = Low Risk Oriented to surroundings, Maintained a safe environment, Assessed \T\ reinforced patient's understanding of fall precautions, Hourly rounding (assess needs \T\ fall precautionary measures) done. Abuse screen: Denies threats or abuse. Denies injuries from another. Nutritional screening: No deficits noted. Tuberculosis screening: No symptoms or risk factors identified. Never had TB. Assessment: 19:16 General: Appears in no apparent distress. comfortable, Behavior is calm, cooperative, cp4 appropriate for age. Pain: Denies pain. Neuro: Level of Consciousness is awake, alert, obeys commands, Oriented to person, place, time, situation. Cardiovascular: Patient's skin is warm and dry. Rhythm is sinus rhythm. Respiratory: Airway is patent Respiratory effort is even, unlabored, Breath sounds are clear bilaterally. GI: No signs and/or symptoms were reported involving the gastrointestinal system. : No signs and/or symptoms were reported regarding the genitourinary system. EENT: No signs and/or symptoms were reported regarding the EENT system. Derm: No signs and/or symptoms reported regarding the dermatologic system. Musculoskeletal: No signs and/or symptoms reported regarding the musculoskeletal system. Vital Signs: 18:48 BP 215 / 106; Pulse 69; Resp 19; Temp 98.2; Pulse Ox 100% ; Weight 61.23 kg; Height 4 me1 ft. 11 in. ; Pain 4/10; 19:26 BP 205 / 93; Pulse 60; Resp 18; Pulse Ox 100% ; cp4 20:44 BP 147 / 56; Pulse 78; Resp 18; Pulse Ox 100% ; cp4 21:52 BP 159 / 82; Pulse 61; Resp 18; Pulse Ox 99% ; cp4 18:48 Body Mass Index 27.27 (61.23 kg, 149.86 cm) me1 18:48 Pain Scale: Adult me1 ED Course: 18:45 Patient arrived in ED. mr 18:45 Monica Diego PA-C is PHCP. sb4 18:46 Jamal Salazar MD is Attending Physician. sb4 18:51 Triage completed. me1 18:51 Arm band placed on Patient placed in an exam room. EKG completed in triage. Results me1 shown to MD. EKG completed in triage. Results shown to MD. 19:15 Iesha Erickson is Primary Nurse. cp4 19:16 Bed in low position. Call light in reach. Side rails up X 1. cp4 19:16 No provider procedures requiring assistance completed. Initial lab(s) drawn, by gurvinder domingo sent to lab. Inserted saline lock: 20 gauge in right antecubital area, using aseptic technique. Blood collected. Flushed with 10 mL NS. 19:31 EKG done, by durability technician. reviewed by Iesha Erickson. ts3 19:52 XRAY Chest (1 view) In Process Unspecified. EDMS 21:59 Provided Education on: hypertension. cp4 21:59 intact, bleeding controlled, No redness/swelling at site. Pressure dressing applied. cp4 Administered Medications: 19:25 Not Given (Already takenn): aspirinchewable tablet 324 mg PO once; 81 mg tablets x 4 cp4 19:26 Drug: cloNIDine PO 0.2 mg PO once Route: PO; cp4 20:45 Follow up: Response: No adverse reaction; Blood pressure is lowered cp4 20:45 CANCELLED (Inappropriate at this time): [id number] mg IVP once sb4 Medication: 19:16 VIS not applicable for this client. cp4 Outcome: 21:41 Discharge ordered by MD. sb4 21:59 Discharged to home ambulatory, cp4 21:59 Condition: stable 21:59 Discharge instructions given to patient, family, Instructed on discharge instructions, follow up and referral plans. medication usage, Demonstrated understanding of instructions, follow-up care, medications, Prescriptions given X 1, 22:01 Patient left the ED. cp4 Signatures: Dispatcher [employer] [facility] Odalys Banks, Monica Ferguson, PAFrench PAFrench sb4 Mari Tadeo, RN RN me1 Iesha Erickson cp4 Lulú Duffy ts3
[2025-08-14 22:06] VITALS: TEMP 98.2
[2025-08-14 22:10] VITALS: BP 159/82; O2SAT 99
== END 2025-08-14 22:01 | disposition home or self-care (01) ==
LOC: ER 18:43
DX: R06.02 Shortness of breath (principal); I10 Essential (primary) hypertension; E78.00 Pure hypercholesterolemia, unspecified; R51.9 Headache, unspecified; F41.9 Anxiety disorder, unspecified
CPT/HCPCS: 36415; 71045; 80048; 80076; 83735; 83880; 84484; 85025; 85610; 93005; 99284